=== PATIENT | female | born 1995 | race Caucasian/White ===

== ENCOUNTER 2022-06-01 12:24 | Emergency (ER) | payer BC, SELFPAY ==
[2022-06-01 12:41] VITALS: BP 109/64; PULSE 104; TEMP 36.2; O2SAT 100; BMI 35.3
--- NOTE | 2022-06-01 12:47 | CRLHL7_ITS ---
For Patients: As a result of the Cures Act, medical imaging exams and procedure reports are released immediately into your electronic medical record. You may view this report before your referring provider. If you have questions, please contact your health care provider. INDICATION: Trauma TECHNIQUE: Three-view 3rd digit right hand COMPARISON: None FINDINGS: Bones: Alignment is normal. No fractures or bone lesions. Joint spaces: Unremarkable. Soft tissues: Unremarkable. IMPRESSION: No evidence acute trauma. Dictated by Wil Cota MD @ 06/01/2022 1:28:47 PM Dictated by: Wil Cota MD @ 06/01/2022 13:30:18 (Electronically Signed)
--- NOTE | 2022-06-01 13:37 | ED_ITS ---
HPI - Extremity Injury (Upper) General Chief Complaint: Extremity Pain/Injury, Upper Stated Complaint: Pinched middle finger in garage door Time Seen by Provider: 06/01/22 12:46 History of Present Illness HPI narrative: This 27-year-old female comes in with an injury to her right middle finger. She was pulling down a garage door when she got her finger pinched in the door some out. She has bruising on the palmar aspect of the distal portion of the right middle finger and a small amount of subungual hematoma on the same finger. She does not report any other injury. There is no abrasion or laceration of the skin. Related Data Previous Rx's Medication Instructions Recorded venlafaxine 75 mg capsule,extended 75 mg PO QAM 30 days #30 caps 05/09/22 release 24 hr (Effexor XR) ketorolac 10 mg tablet 10 mg PO Q8H 5 days #15 tabs 06/01/22 Allergies Allergy/AdvReac Type Severity Reaction Status Date / Time amoxicillin Allergy Mild Unknown Verified 05/26/22 10:00 ciprofloxacin Allergy Unknown Verified 05/26/22 10:00 Penicillins Allergy Unknown Rash Verified 05/26/22 10:00 bee venom protein (honey bee) Allergy Verified 05/26/22 10:00 Review of Systems Status of ROS: Reports: 10 or more systems reviewed and unremarkable except as noted in History and below Narrative: Constitutional: No fevers, no weight gain or loss. Eyes: No discharge. No vision changes. HENT: No congestion, no sore throat, no ear pain. Cardiovascular: No chest pain, no palpitations. Respiratory: No shortness of breath, no wheezes, no cough. Gastrointestinal: No abdominal pain, no vomiting, no diarrhea. Genitourinary: No dysuria, no hematuria. Musculoskeletal: Normal range of motion. Injury to the distal portion of the right middle finger. Skin: No rashes, no pruritis. Neurological: No dizziness, weakness, sensory change, speech change. Endo/Heme/Allergies: No bruising or bleeding. No polydipsia. Pysch: no suicidality, no anxiety, no insomnia. All other systems reviewed and are negative. 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 HEENT: Normocephalic, atraumatic. Neck: Normal range of motion. Nontender. Supple. Heart: Intact distal pulses. Lungs: No chest discomfort. No wheezes, rhonchi, or rales. Abdomen: Nontender. Back: Normal range of motion. Extremities: Normal range of motion. Mild swelling with bruising on the distal portion of the right middle finger. There is a small amount of bruising under the nail. No abrasion or laceration of the skin. Skin: Intact. No rash. Warm. No erythema or pallor. Neurologic: No altered sensation. No weakness. Alert and oriented. Psychiatric: No suicidality. No anxiety or depression. No insomnia. Nursing notes and vitals signs are reviewed. Const: Vital Signs, click to edit/add: Vital Signs - 24 hr 06/01/22 12:41 Temperature 97.2 F L Pulse Rate [Pulse Oximeter] 104 H Blood Pressure [Ri ght Upper Arm] 109/64 Pulse Oximetry 100 Oxygen Delivery Me thod Room Air Course Vital Signs Vital signs: Initial Vital Signs Temperature 97.2 F L 06/01/22 12:41 Temperature Source Temporal Artery Scan 06/01/22 12:41 Pulse Rate 104 H 06/01/22 12:41 Blood Pressure 109/64 06/01/22 12:41 Blood Pressure Mean 79 06/01/22 12:41 Blood Pressure Position Sitting 06/01/22 12:41 Pulse Oximetry 100 06/01/22 12:41 Oxygen Delivery Method 06/01/22 12:41 Vital Signs Temperature 97.2 F L 06/01/22 12:41 Pulse Rate 104 H 06/01/22 12:41 Blood Pressure 109/64 06/01/22 12:41 Pulse Oximetry 100 06/01/22 12:41 Oxygen Delivery Method 06/01/22 12:41 Temperature 97.2 F L 06/01/22 12:41 Pulse Rate 104 H 06/01/22 12:41 Blood Pressure 109/64 06/01/22 12:41 Pulse Oximetry 100 06/01/22 12:41 Oxygen Delivery Method 06/01/22 12:41 MDM - Extremity Injury (Upper) MDM Narrative Medical decision making narrative: This patient comes in for evaluation of a crush injury to the distal portion of her right middle finger. X-ray imaging shows no sign of fracture or dislocation. There is no compromise of her skin. The patient was placed in a finger splint and received a prescription for Toradol. She can increase activity as tolerated. Imaging Data xr finger: Radiologist's impression: No evidence acute trauma. Discharge Plan Discharge Clinical Impression: Crush injury to finger Condition: Stable Instructions: Crush Injury (ED) Additional Instructions: Wear splint as needed. Take medication as needed and indicated. Follow up with MD. Prescriptions: New ketorolac 10 mg tablet 10 mg PO Q8H 5 Days Qty: 15 0RF No Action venlafaxine [Effexor XR] 75 mg capsule,extended release 24hr 75 mg PO QAM 30 Days Qty: 30 0RF Rx Instructions: start with effexor 37.5 daily x 2 weeks and then increase to 75 mg daily Follow Up/Referrals: Milagros Sal APRN, MEETING FACILITATOR [Primary Care Provider] - Stand Alone Forms: [facility] Info Instructions
== END 2022-06-01 14:03 | disposition home or self-care (01) ==
PROVIDERS: Emergency Provider Emergency Medicine Emergency Medical Services; PCP Nurse Practitioner Family
DX: S67.192A Crushing injury of right middle finger, initial encounter (principal); W23.0XXA Caught, crushed, jammed, or pinched between moving objects, initial encounter; Y93.9 Activity, unspecified; Y92.015 Private garage of single-family (private) house as the place of occurrence of the external cause
CPT/HCPCS: 73140; 99283

== ENCOUNTER 2022-07-09 18:35 | Emergency (ER) | payer BC, SELFPAY ==
[2022-07-09 18:42] VITALS: BP 116/74; PULSE 98; RESP 18; TEMP 36.2; O2SAT 99; BMI 34.0
--- NOTE | 2022-07-09 18:52 | ED.HA ---
HPI - Headache General Chief Complaint: Headache/Migraine Stated Complaint: HEADACHE,HEAD PAIN Time Seen by Provider: 07/09/22 18:38 History of Present Illness HPI Narrative: Whitney is a 27yo female patient with history of major depressive disorder and generalized anxiety disorder, obstructive sleep apnea, and insomnia who presents to the emergency department with 4 hours of a headache. Patient reports that she took Tylenol at the onset of headache approximately 4 hours prior. When that showed no improvement, she reports taking ibuprofen approximately 2 hours ago. She continues with pain and discomfort so she is presented to the emergency department for evaluation and treatment. She denies history of migraines or frequent headaches. She reports that the pain is worse at the front of her head and feels like a pressure. She denies nasal congestion, sinus pressure or tenderness, ear pain, sore throat, or other URI symptom. She reports some nausea and feels that she 'may get sick at any point'. She has not vomited. Otherwise, she denies abdominal pain, diarrhea, constipation. She has no significant vision changes. Related Data Previous Rx's Medication Instructions Recorded venlafaxine 75 mg capsule,extended 75 mg PO QAM 30 days #30 caps 06/29/22 release 24 hr (Effexor XR) venlafaxine 37.5 mg 37.5 mg PO QDAY 14 days #14 caps 07/04/22 capsule,extended release 24 hr (Effexor XR) sertraline 50 mg tablet (Zoloft) 50 mg PO QDAY 30 days #30 tabs 07/06/22 Allergies Allergy/AdvReac Type Severity Reaction Status Date / Time amoxicillin Allergy Mild Unknown Verified 07/04/22 15:09 ciprofloxacin Allergy Unknown Verified 07/04/22 15:09 Penicillins Allergy Unknown Rash Verified 07/04/22 15:09 bee venom protein (honey bee) Allergy Verified 07/04/22 15:09 Review of Systems Const: Reports: fatigue and malaise; Denies: fever or chills Eyes: Reports: light sensitivity; Denies: change in vision, blurry vision or eye discomfort ENMT: Denies: throat pain, ear pain, vertigo, nasal discharge or nasal congestion Cardio: Denies: chest pain, palpitations, shortness of breath with exertion or shortness of breath when lying down Resp: Denies: shortness of breath or cough GI: Denies: abdominal pain, nausea, vomiting, diarrhea or constipation Integ/Breast: Denies: rash Neuro: Reports: headache; Denies: numbness in extremities, weakness in extremities, lack of coordination, dizziness, vertigo, confusion, behavioral changes, slurred speech or difficulty communicating thoughts Psych: Reports: anxiety Endo: Reports: fatigue PFSH PFSH Surgical History (Updated 05/05/22 @ 09:21 by Calvin Wilson) History of ovarian cystectomy (2017) Status post laparoscopic cholecystectomy Status post primary low transverse section (2020) Family History (Updated 05/05/22 @ 09:23 by Calvin Wilson) Maternal Grandfather Diabetes Mother Epilepsy Pulmonary embolism Social History (Updated 05/05/22 @ 09:24 by Calvin Wilson) 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 , 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[place], 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 Social drinker, 3/week Smoking Status: Never smoker Do you use any of these nicotine containing products: None Second hand tobacco smoke exposure: No How often do you have a drink containing alcohol: never How often do you have six or more drinks on one occasion: Never AUDIT-C Alcohol total score: 0 Non-prescribed substance use: denies use Little interest or pleasure in doing things: more than half the days Feeling down, depressed, or hopeless: nearly every day Exam Const: Vital Signs, click to edit/add: Vital Signs - 24 hr 07/09/22 18:42 Temperature 97.1 F L Pulse Rate [Right Pulse Oximeter] 98 Respiratory Rate 18 Blood Pressure [Ri ght Upper Arm] 116/74 Pulse Oximetry 99 Oxygen Delivery Me thod Room Air Documenting provider has reviewed patient's vital signs: yes Common normals: oriented x3, no limitations and alert General appearance: in distress moderate; not comfortable Orientation/consciousness: Yes awake, Yes oriented to person, Yes oriented to place and Yes oriented to time HENMT: Common normals: normocephalic, head/scalp atraumatic and hearing grossly normal bilaterally Head and scalp: normal to inspection, normocephalic and atraumatic Face and sinus: normal facial exam (limited by masking) Eye: Common normals: PERRL and EOMs intact bilaterally General eye: normal appearance of both eyes Pupil: PERRL Direct Ophthalmoscopy: photophobia Neck & C-Spine: Common normals: full ROM, no lymphadenopathy and supple Resp: Common normals: normal respiratory effort, no retractions, no use of accessory muscles and clear to auscultation bilaterally Effort & inspection: able to speak in complete sentences Auscultation: clear to auscultation bilaterally; no crackles, no rales, no rhonchi and no wheezes Cardio: Common normals: regular rate, regular rhythm, S1 normal heart sound, S2 normal heart sound, no gallops, no clicks and no murmurs Rate: regular rate Rhythm: regular rhythm Heart sounds: S1 normal and S2 normal GI: Common normals: Normal to inspection, nondistended, normoactive bowel sounds present, soft to palpation and non-tender Palpation: soft Extremity: Common normals: normal to inspection, full ROM and no clubbing, cyanosis or edema Neuro: Jeannie Coma Scale: document GCS findings Jeannie coma scale eye opening: Spontaneous (4) Jeannie coma scale verbal response: Orientated (5) Maramec coma scale motor response: Obey commands (6) Jeannie coma scale total score: 15 Common normals: oriented x3, CN's II-XII intact bilaterally, moves all extremities, no focal motor deficits and no sensory deficits noted Sensorium/orientation: awake, alert, oriented to person, oriented to place and oriented to time Speech: speech normal Gait (neuro): normal gait Sensory exam: double simultaneous stimulation for sensation normal Motor exam: no pronator drift and no movement abnormalities noted Psych: Common normals: mental status grossly normal, thought process normal and activity/motor behavior normal Thought process: normal thought process Thought content: normal thought content Attention/concentration: attention grossly intact Memory/cognition: memory grossly intact Insight: insight good Judgement: judgment good Skin: Common normals: no rashes or lesions noted General skin exam: no rashes or lesions noted Course Course Hospital Course: Whitney presents for evaluation of headache present for 4hrs. She has had labs ordered. Treatment ordered. She is in good spirits with nursing staff while undergoing evaluation and treatment. Reevaluation(s) Reevaluation #1: Patient sleeping soundly on reevaluation. Upon awakening, patient reports significant improvement in symptoms. Patient's vital signs have remained stable. The results were discussed, and the patient verbalized understanding. Reasons for follow-up or return were discussed. Time: 20:29 Vital Signs Vital signs: Initial Vital Signs Temperature 97.1 F L 07/09/22 18:42 Temperature Source Temporal Artery Scan 07/09/22 18:42 Pulse Rate 98 07/09/22 18:42 Pulse Rhythm 07/09/22 18:42 Respiratory Rate 18 07/09/22 18:42 Blood Pressure 116/74 07/09/22 18:42 Blood Pressure Mean 88 07/09/22 18:42 Blood Pressure Position Sitting 07/09/22 18:42 Pulse Oximetry 99 07/09/22 18:42 Oxygen Delivery Method 07/09/22 18:42 Vital Signs Temperature 97.1 F L 07/09/22 18:42 Pulse Rate 98 07/09/22 18:42 Respiratory Rate 18 07/09/22 18:42 Blood Pressure 116/74 07/09/22 18:42 Pulse Oximetry 99 07/09/22 18:42 Oxygen Delivery Method 07/09/22 18:42 Temperature 97.1 F L 07/09/22 18:42 Pulse Rate 98 07/09/22 18:42 Respiratory Rate 18 07/09/22 18:42 Blood Pressure 116/74 07/09/22 18:42 Pulse Oximetry 99 07/09/22 18:42 Oxygen Delivery Method 07/09/22 18:42 MDM - Headache MDM Narrative Medical decision making narrative: Life-threatening differential diagnoses include: SAH, meningitis, encephalitis, carbon monoxide poisoning, and intracerebral hemorrhage. Other differential diagnoses include, but are not limited to: migraine, cluster headache, tension headache, [employer] vasculitis, mass lesion, temporal arteritis, acute closed angle glaucoma, occipital or trigeminal neuralgia, and sinusitis. Differential Diagnosis Differential diagnosis: Likely migraine, tension headache and headache Medical Records Attestation: I reviewed the patient's medical records. Lab Data Attestation: I reviewed the patient's lab results. Labs: Lab Results 07/09/22 07/09/22 07/09/22 Range/Units 19:22 19:22 19:22 WBC 8.26 (4.50-11.00) K/uL RBC 3.94 L (4.00-5.20) m/uL Hgb 10.8 L (12.0-16.0) gm/dL Hct 32.6 L (33.0-51.0) % MCV 83 (80-100) fL MCH 27 (26-34) pg MCHC 33 (32-36) gm/dL RDW Coeff of Elena 13.6 (11.5-15.5) % Plt Count 290 (140-440) K/uL Neut % (Auto) 63.8 (42.0-72.0) % Lymph % (Auto) 26.9 (20-44) % Dorado % (Auto) 5.8 (0.0-11.0) % Eos % (Auto) 2.8 (0.0-7.0) % Baso % (Auto) 0.5 (0.0-3.0) % Neut # (Auto) 5.27 (1.7-7.0) K/uL Lymph # (Auto) 2.22 (0.90-2.90) K/uL Dorado # (Auto) 0.50 (0.00-0.90) K/UL Eos # (Auto) 0.23 (0.00-0.50) K/uL Baso # (Auto) 0.04 (0.00-0.30) K/uL Abs Immat Gran (auto) 0.02 (0.00-0.30) K/uL ESR 22 H (2-20) mm/hr Sodium 138 (135-149) mmol/L Potassium 3.5 L (3.6-5.1) mmol/L Chloride 106 (96-114) mmol/L Carbon Dioxide 23 (20-32) mmol/L Creatinine 0.7 (0.5-1.5) mg/dL Estimated Creat Clear 91.90 Estimated GFR 122 ml/min Glucose 100 (60-115) mg/dL Calcium 8.5 (8.4-10.6) mg/dL Discharge Plan Discharge Clinical Impression: Headache Patient Disposition: Home, Self-Care Condition: Improved Instructions: Acute Headache (ED) Additional Instructions: Thank you for choosing [facility] for your care today. You should drink plenty of water. Consider magnesium ([id number]) and riboflavin ([id number]) 400 mg each daily. Avoid headache triggers including dressing changes and caffeine intake, cheeses, significant changes and sugar intake, etc.. There are foods known to cause or trigger migraines and patients, and you may consider keeping a food and headache log to evaluate if you have sensitivities to certain foods. Take your medications as directed. There is a condition called rebound headache phenomenon that occurs with medication overuse. Attempt to avoid overusing [id number] medications. If your headache change in nature, frequency, intensity, or there are new neurologic concerns, you should follow-up with your primary care physician who may consider a brain MRI for further evaluation. I recommend calling primary care for follow-up in the next 1-2 weeks. If new or worsening symptoms develop, or you have any concerns in the meantime, please call your primary care clinic or return to the ER for re-evaluation. Activity Level: No Restrictions and Activity as Tolerated Discharge Diet: Regular Prescriptions: No Action venlafaxine [Effexor XR] 37.5 mg capsule,extended release 24hr 37.5 mg PO QDAY 14 Days Qty: 14 0RF venlafaxine [Effexor XR] 75 mg capsule,extended release 24hr 75 mg PO QAM 30 Days Qty: 30 0RF sertraline [Zoloft] 50 mg tablet 50 mg PO QDAY 30 Days Qty: 30 0RF Follow Up/Referrals: Milagros Sal, SOFTWARE SECURITY CONSULTANT, PRINTED CIRCUIT BOARDS ROUTER [Primary Care Provider] - Stand Alone Forms: [employer] Info Instructions
[2022-07-09] MEDS: diphenhydrAMINE 50 MG/ML inj 25 MG IVP (19:14)
[2022-07-09] MEDS: ACETAMINOPHEN 325 MG TABLET 650 MG PO (19:14)
[2022-07-09] MEDS: KETOROLAC 30 MG/ML inj IVP (19:14)
[2022-07-09] MEDS: 0.9 % SODIUM CHLORIDE 1000 ml 1,000 ML IV (19:15)
[2022-07-09] MEDS: MAGNESIUM SULFATE 2 GM/50 ML PIGGYBACK IVPB (19:15)
[2022-07-09] MEDS: ONDANSETRON 2 MG/ML inj 4 MG IVP (19:15)
[2022-07-09 19:27] LABS: Basophils Absolute Auto 0.04 K/uL (0.00-0.30); Basophils Percent Auto 0.5 % (0.0-3.0); Eosinophils Absolute Auto 0.23 K/uL (0.00-0.50); Eosinophils Percent Auto 2.8 % (0.0-7.0); Hematocrit 32.6 % (33.0-51.0); Hemoglobin* 10.8 gm/dL (12.0-16.0); Immature Granulocytes Abs Auto 0.02 K/uL (0.00-0.30); Lymphocytes Absolute Auto 2.22 K/uL (0.90-2.90); Lymphocytes Percent Auto 26.9 % (20-44); Mean Corpuscular HGB Conc 33 gm/dL (32-36); Mean Corpuscular Hemoglobin 27 pg (26-34); Mean Corpuscular Volume 83 fL (80-100); Monocytes Percent Auto 5.8 % (0.0-11.0); Neutrophils Absolute Auto 5.27 K/uL (1.7-7.0); Neutrophils Percent Auto 63.8 % (42.0-72.0); Platelet Count* 290 K/uL (140-440); RDW Coefficient of Variation % 13.6 % (11.5-15.5); Red Blood Count 3.94 m/uL (4.00-5.20); White Blood Count* 8.26 K/uL (4.50-11.00)
[2022-07-09 19:36] LABS: Slide Review Reflex No
[2022-07-09 19:41] LABS: Chloride* 106 mmol/L (96-114); Potassium* 3.5 mmol/L (3.6-5.1); Sodium* 138 mmol/L (135-149)
[2022-07-09 19:44] LABS: Carbon Dioxide* 23 mmol/L (20-32); Creatinine* 0.7 mg/dL (0.5-1.5); Estimated Glomerular Filt Rate 122 ml/min; Glucose* 100 mg/dL (60-115)
[2022-07-09 19:45] LABS: Calcium* 8.5 mg/dL (8.4-10.6)
[2022-07-09 20:20] LABS: Erythrocyte SedimentationRate* 22 mm/hr (2-20)
[2022-07-09 20:40] VITALS: BP 122/70; PULSE 74; RESP 16; O2SAT 99
[2022-07-10 08:14] LABS: Blood Urea Nitrogen* 5 mg/dL (5-24)
== END 2022-07-09 20:48 | disposition home or self-care (01) ==
PROVIDERS: Emergency Provider Family Medicine; PCP Nurse Practitioner Family
DX: R51.9 Headache, unspecified (principal)
CPT/HCPCS: 36415; 80048; 82375; 85025; 85651; 96365; 96375; 99283; 99284; A9270; J1200; J1885; J2405; J3475; J7030

== ENCOUNTER 2022-07-10 14:46 | Outpatient (CLI) | payer BC, SELFPAY ==
[2022-07-10 22:29] LABS: SARS PCR* Negative SARS-CoV-2 (Negative)
== END 2022-07-10 14:47 | disposition home or self-care (01) ==
LOC: KYNREF 14:46
PROVIDERS: PCP Nurse Practitioner Family; Visit Provider Nurse Practitioner Family
DX: Z11.52 Encounter for screening for COVID-19 (principal); R51.9 Headache, unspecified
CPT/HCPCS: 87635

== ENCOUNTER 2022-07-20 15:30 | Outpatient (CLI) | payer BC, SELFPAY ==
--- NOTE | 2022-07-20 15:30 | CRLHL7_ITS ---
For Patients: As a result of the Century Cures Act, medical imaging exams and procedure reports are released immediately into your electronic medical record. You may view this report before your referring provider. If you have questions, please contact your health care provider. INDICATION: Headaches. TECHNIQUE: Brain MRI without contrast. The following sequences were obtained: Sagittal T1 weighted sequence. DWI and ADC mapping sequences. Axial FLAIR and CARROLL T2 weighted sequences. COMPARISON: None. FINDINGS: Mildly motion degraded exam. No evidence of acute ischemia. No evidence of acute or chronic intracranial blood products. Scattered FLAIR hyperintensities within the supratentorial white matter, nonspecific in greater than typical for age. No mass effect or herniation. No hydrocephalus or extra-axial collections. The pituitary gland, parasellar structures and optic chiasm are normal. Posterior fossa is normal. All the major intracranial vascular structures demonstrate normal flow-related signal. The orbital contents are normal. No calvarial or skull base marrow replacing process. No obstructive sinus disease. No extracranial soft tissue findings. IMPRESSION: 1. No acute infarction or other acute intracranial pathology. 2. Multiple FLAIR hyperintensities scattered within the supratentorial white matter, greater than typical for age. Consider sequela of migrainous headaches given history. Chronic microvascular ischemic change could also have this appearance. Dictated by Sharif Barrett MD @ 07/20/2022 7:16:57 PM (Electronically Signed)
== END 2022-07-20 15:31 | disposition home or self-care (01) ==
PROVIDERS: PCP Nurse Practitioner Family; Visit Provider Nurse Practitioner Family
DX: R51.9 Headache, unspecified (principal)
CPT/HCPCS: 70551

== ENCOUNTER 2022-08-01 16:09 | Outpatient (CLI) | payer BC, SELFPAY ==
[2022-08-01 20:24] LABS: Vitamin D 25 Hydroxy* 24 ng/mL (30-80)
== END 2022-08-01 16:10 | disposition home or self-care (01) ==
PROVIDERS: PCP Nurse Practitioner Family; Visit Provider Nurse Practitioner Family
DX: Z01.419 Encounter for gynecological examination (general) (routine) without abnormal findings (principal); R79.89 Other specified abnormal findings of blood chemistry; E66.9 Obesity, unspecified; Z79.899 Other long term (current) drug therapy
CPT/HCPCS: 82306; 84443

== ENCOUNTER 2023-05-15 10:26 | Outpatient (CLI) | payer OTHER, SELFPAY | END 2023-05-15 10:27 | disposition home or self-care (01) | PROVIDERS: PCP Nurse Practitioner Family; Visit Provider Nurse Practitioner Family | DX: R20.2 Paresthesia of skin (principal); R79.89 Other specified abnormal findings of blood chemistry | CPT/HCPCS: 82607; 82947; 84443 ==

== ENCOUNTER 2023-05-31 16:50 | Outpatient (CLI) | payer OTHER, SELFPAY ==
[2023-05-31 23:41] LABS: GC DNA Amplified* NOT DETECTED (No Detected)
[2023-06-01] LABS: Chlamydia DNA Amplified* DETECTED (No Detected)
== END 2023-05-31 16:51 | disposition home or self-care (01) ==
LOC: NFLDUCREF 17:00
PROVIDERS: PCP Nurse Practitioner Family; Visit Provider Nurse Practitioner Family
DX: N89.8 Other specified noninflammatory disorders of vagina (principal); R30.0 Dysuria
CPT/HCPCS: 87086; 87491; 87591

== ENCOUNTER 2023-09-11 08:46 | Outpatient (CLI) | payer OTHER, SELFPAY | END 2023-09-11 08:47 | disposition home or self-care (01) | PROVIDERS: PCP Nurse Practitioner Family; Visit Provider Nurse Practitioner Family | DX: R53.83 Other fatigue (principal); R79.89 Other specified abnormal findings of blood chemistry | CPT/HCPCS: 82306; 82728; 83540; 83550; 85025 ==

== ENCOUNTER 2023-11-27 16:04 | Outpatient (CLI) | payer OTHER, SELFPAY | END 2023-11-27 16:05 | disposition home or self-care (01) | PROVIDERS: PCP Nurse Practitioner Family; Visit Provider Nurse Practitioner Family | DX: R79.89 Other specified abnormal findings of blood chemistry (principal); D50.9 Iron deficiency anemia, unspecified; Z51.81 Encounter for therapeutic drug level monitoring | CPT/HCPCS: 80306; 82306; 85025 ==

== ENCOUNTER 2024-01-13 13:47 | Emergency (ER) | payer OTHER, SELFPAY ==
[2024-01-13 13:52] VITALS: BP 108/77; PULSE 115; RESP 22; TEMP 36.4; O2SAT 100; BMI 31.2
--- NOTE | 2024-01-13 13:56 | ED_ITS ---
HPI - General Adult General Chief complaint: Fall/Minor Trauma Stated complaint: Fell, hit head, radiating pain to jaw Time Seen by Provider: 01/13/24 13:56 History of Present Illness HPI narrative: Patient fell in shower scraping right shoulder and hitting head on left side. Goose egg noted above left ear . No LOC. Slight nausea and headache. Needs work note at discharge 28-year-old young woman presenting to the emergency department after striking her head in her shower about a couple hours ago. There was no loss of consciousness but she sat there for bit seeing stars. She is starting to feel more queasy and tingly now. She did take ibuprofen. No neck or back pain but feels pain radiating from the left upper head area down below lower jaw [place] neck. Dentition feels normal/intact noting her affected bite. No back pain. No peripheral symptoms. No visual changes. She notes that she scraped her right upper back and is starting to have more pain with movement of her right arm. Related Data Previous Rx's Medication Instructions Recorded pediatric multivitamin no.140-iron 1 tab PO DAILY #90 tabs 09/14/23 fumarate 18 mg iron chewable tablet (Children's Chewable Vitamin Complete) trazodone 50 mg tablet 50 mg PO QHS PRN insomnia #90 tabs 10/11/23 fluticasone propionate 50 1 spray intranasal QDAY #16 grams 11/27/23 mcg/actuation nasal spray,suspension (Flonase Allergy Relief) cholecalciferol (vitamin D3) 50 50 mcg PO QDAY #90 caps 11/30/23 mcg (2,000 unit) capsule dextroamphetamine-amphetamine ER 30 mg PO QAM #30 caps 12/28/23 30 mg 24hr capsule,extend release (Adderall XR) mupirocin 2 % topical ointment 1 applic topical TID #15 grams 01/02/24 ibuprofen 600 mg tablet 600 mg PO Q6-8H PRN #20 tabs 01/13/24 Allergies Allergy/AdvReac Type Severity Reaction Status Date / Time amoxicillin Allergy Mild Unknown Verified 01/02/24 15:00 ciprofloxacin Allergy Unknown Verified 01/02/24 15:00 Penicillins Allergy Unknown Rash Verified 01/02/24 15:00 bee venom protein (honey bee) Allergy Verified 01/02/24 15:00 Review of Systems Status of ROS: Reports: 6 or more systems reviewed and unremarkable except as noted in History and below [facility] Medical History Iron deficiency anemia (2016) ?D50.9 - Iron deficiency anemia, unspecified (ICD-10) Insomnia ?G47.00 - Insomnia, unspecified (ICD-10) Marijuana use ?F12.90 - Cannabis use, unspecified, uncomplicated (ICD-10) ADHD ?F90.9 - Attention-deficit hyperactivity disorder, unspecified type (ICD-10) History of alcohol abuse ?F10.11 - Alcohol abuse, in remission (ICD-10) Labor abnormality ?O62.9 - Abnormality of forces of labor, unspecified (ICD-10) Low vitamin D level ?R79.89 - Other specified abnormal findings of blood chemistry (ICD-10) Post-traumatic stress ?F43.10 - Post-traumatic stress disorder, unspecified (ICD-10) Passive suicidal ideations ?R45.851 - Suicidal ideations (ICD-10) Medication management ?Z79.899 - Other intermediate manager (current) drug therapy (ICD-10) Persistent headaches ?R51.9 - Headache, unspecified (ICD-10) Nausea ?R11.0 - Nausea (ICD-10) Headache ?R51.9 - Headache, unspecified (ICD-10) Nexplanon insertion ?Z30.017 - Encounter for initial prescription of implantable subdermal contraceptive (ICD-10) Nexplanon in place ?Z97.5 - Presence of (intrauterine) contraceptive device (ICD-10) Viral infection ?B34.9 - Viral infection, unspecified (ICD-10) Obstructive sleep apnea syndrome ?G47.33 - Obstructive sleep apnea (adult) (pediatric) (ICD-10) Obesity with body mass index (BMI) of 30.0 to 39.9 ?E66.9 - Obesity, unspecified (ICD-10) Excessive daytime sleepiness ?G47.19 - Other hypersomnia (ICD-10) Elevated liver function tests ?R79.89 - Other specified abnormal findings of blood chemistry (ICD-10) Difficulty sleeping ?G47.9 - Sleep disorder, unspecified (ICD-10) Anxiety with depression ?F41.8 - Other specified anxiety disorders (ICD-10) Anemia due to acute blood loss ?D62 - Acute posthemorrhagic anemia (ICD-10) Acute cholecystitis ?K81.0 - Acute cholecystitis (ICD-10) Surgical History Status post primary low transverse section (2020) ?Z98.891 - History of uterine scar from previous surgery (ICD-10) Status post laparoscopic cholecystectomy ?Z90.49 - Acquired absence of other specified parts of digestive tract (ICD- 10) History of ovarian cystectomy (2017) ?Z98.890 - Other specified postprocedural states (ICD-10) ?Z87.42 - Personal history of other diseases of the female genital tract (ICD-10) Family History Maternal Grandfather Diabetes Mother Epilepsy Pulmonary embolism Social History 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 , 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, 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 Social drinker, 3/week Smoking Status: Never smoker Do you use any of these nicotine containing products: None Second hand tobacco smoke exposure: No How often do you have a drink containing alcohol: never How often do you have six or more drinks on one occasion: Never AUDIT-C Alcohol total score: 0 Non-prescribed substance use: denies use Little interest or pleasure in doing things: several days Feeling down, depressed, or hopeless: several days Exam Narrative: Exam Narrative: Pleasant. Her head is wet from recent shower. She has have an egg-sized swelling above the left ear. Quite tender here. No break in the skin but faintly erythematous. Opens close the jaw without difficulty and without disc rete TMJ tenderness. Ear canals clear fluid. Neck is supple nontender back nontender until the right scapular area which is with to larger oval in ear abrasions parallel. Some subtle disruption of the skin at the lower most medial lower aspec. Is raising arms though over her head without difficulty. Cranial nerves 2-12 intact. Point avoid is normal. Articulating herself clearly, fluidly. Const: Vital Signs, click to edit/add: Vital Signs - 24 hr 01/13/24 13:52 Temperature 97.5 F L Pulse Rate [Pulse Oximeter] 115 H Respiratory Rate 22 Blood Pressure [Ri ght Upper Arm] 108/77 Pulse Oximetry 100 Oxygen Delivery Me thod Room Air Documenting provider has reviewed patient's vital signs: yes Course Vital Signs Vital signs: Initial Vital Signs Temperature 97.5 F L 01/13/24 13:52 Temperature Source Temporal Artery Scan 01/13/24 13:52 Pulse Rate 115 H 01/13/24 13:52 Pulse Rhythm Regular 01/13/24 13:52 Respiratory Rate 22 01/13/24 13:52 Blood Pressure 108/77 01/13/24 13:52 Blood Pressure Mean 87 01/13/24 13:52 Blood Pressure Position Sitting 01/13/24 13:52 Pulse Oximetry 100 01/13/24 13:52 Oxygen Delivery Method Room Air 01/13/24 13:52 Vital Signs Temperature 97.5 F L 01/13/24 13:52 Pulse Rate 115 H 01/13/24 13:52 Respiratory Rate 22 01/13/24 13:52 Blood Pressure 108/77 01/13/24 13:52 Pulse Oximetry 100 01/13/24 13:52 Oxygen Delivery Method Room Air 01/13/24 13:52 Temperature 97.5 F L 01/13/24 13:52 Pulse Rate 115 H 01/13/24 13:52 Respiratory Rate 22 01/13/24 13:52 Blood Pressure 108/77 01/13/24 13:52 Pulse Oximetry 100 01/13/24 13:52 Oxygen Delivery Method Room Air 01/13/24 13:52 Medications Administered Medications: Discontinued Medications Generic Name Dose Route Start Last Admin Trade Name Freq PRN Reason Stop Dose Admin Acetaminophen 1,000 mg 01/13/24 14:33 01/13/24 14:54 Acetaminophen 500 Mg Tablet PO 01/13/24 14:34 1,000 mg ONCE ONE Administration Ondansetron HCl 4 mg 01/13/24 14:14 01/13/24 14:53 Ondansetron Odt 4 Mg Tab PO 01/13/24 14:15 4 mg ONCE ONE Administration Medical Decision Making MDM Narrative Medical decision making narrative: I suspect more of a superficial injury here. Clearly though with a good deal of pain and moderate swelling. Certainly is possible there is a skull fracture here. Will do head CT. Also provide ice pack. Already has taken ibuprofen with minimal effect. I think time will tell whether not has concussive symptoms. I do not appreciate concussion here today. I do not think there is a scapular fracture given how is able to raise arms rotate the right shoulder. Clearly is quite concerned about potential head injury. I think head CT would be prudent. Given acetaminophen has had been driving and would like something for pain. Pain was worse. Eyeglass arm might be pressing into the sensitive area as well. Ice pack in particular I think has been helpful. Head CT reviewed by me looks to be absent any acute abnormality. Other than some soft tissue swelling on the left extracranial side consistent with physical exam. She is anxious to leave. Discussed pain management. See patient discharge plan for further discussion Medical Records Medical records reviewed: Yes I reviewed the patient's medical records Discharge Plan Discharge Clinical Impression: Closed head injury, Contusion, Abrasion Patient Disposition: Home, Self-Care Condition: Stable Additional Instructions: Stay well-hydrated. Your brain 1 to be hydrated and needs rest; get regular and quality sleep. Return for uncontrolled pain, repeated vomiting, discoordination, focal weakness. Signs or symptoms of a concussion might be nausea or headache upon exertion which can also be an indication to back off that level of activity and reassess in a week.? Concussion can also be represented by smoldering nausea or s moldering headache, difficulty with concentration, mood lability, general somnolence, sense of persistent fog or dizziness/lightheadedness.? If these symptoms are becoming apparent and continuing beyond 7-10 days, be re-evaluated for further recommendations. See handout for stretches you might do couple of times daily for your upper back/neck pain Can take up to 1000 mg of acetaminophen per dose. I have also sent in 600 mg tablets of ibuprofen for you which could be combined with acetaminophen if you want Cold packs to the sore areas 2-3 times daily over the next few days. Prescriptions: New ibuprofen 600 mg tablet 600 mg PO Q6-8H PRNQty: 20 0RF No Action fluticasone propionate [Flonase Allergy Relief] 50 mcg/actuation spray,suspension 1 spray intranasal QDAY Qty: 16 6RF Rx Instructions: administer into each nostril trazodone 50 mg tablet 50 mg PO QHS PRN (Reason: insomnia) Qty: 90 3RF mupirocin 2 % ointment 1 applic topical TID Qty: 15 0RF Child Chewable Vitamn Complete 18 mg iron tablet,chewable 1 tab PO DAILY Qty: 90 3RF cholecalciferol (vitamin D3) 50 mcg (2,000 unit) capsule 50 mcg PO QDAY Qty: 90 3RF Rx Instructions: to start after she finishes 50,000 units weekly dextroamphetamine-amphetamine [Adderall XR] 30 mg capsule,extended release 24hr 30 mg PO QAM Qty: 30 0RF Follow Up/Referrals: Milagros Sal, [employer], [employer] [Primary Care Provider] - Stand Alone Forms: [employer] Info Instructions
--- NOTE | 2024-01-13 14:13 | CT_ITS ---
Patient: SHAKILA KANG Facility:?[facility] Patient ID:?[id number] Site Patient ID:?[id number]. Site :?[id number] Study:?CT-Head WITHOUT-01/13/2024 2:36:20 PM Ordering Physician:MARTHA Final Report: INDICATION: Headache. Trauma. TECHNIQUE: Non-contrast CT of the head is submitted. No comparisons. FINDINGS: The ventricles, sulci and gyri are of normal size, shape and contour. Midline structures are centrally located. No convincing evidence of intra- or extra- axial fluid collections. IMPRESSION: 1. No radiographic evidence of acute intracranial abnormalities. Please note that all CT scans at this facility use dose modulation, iterative reconstruction, and/or weight-based dosing when appropriate to reduce radiation dose to as low as reasonably achievable. Dictated by Andrea Vega MD @ 01/13/2024 3:10:19 PM Signed by:?Andrea Vega MD @01/13/2024 3:10:19 PM (Electronic Signature)
[2024-01-13] MEDS: ONDANSETRON ODT 4 MG TAB PO (14:53)
[2024-01-13] MEDS: ACETAMINOPHEN 500 MG TABLET 1000 MG PO (14:54)
== END 2024-01-13 15:35 | disposition home or self-care (01) ==
PROVIDERS: Emergency Provider Family Medicine; PCP Nurse Practitioner Family
DX: S09.90XA Unspecified injury of head, initial encounter (principal); S40.211A Abrasion of right shoulder, initial encounter; W18.2XXA Fall in (into) shower or empty bathtub, initial encounter
CPT/HCPCS: 70450; 99283; 99284; A9270

== ENCOUNTER 2024-04-26 00:02 | Emergency (ER) | payer BC, SELFPAY ==
[2024-04-26 00:04] VITALS: BP 112/75; PULSE 84; RESP 16; TEMP 36.4; O2SAT 99; BMI 29.3
--- NOTE | 2024-04-26 00:19 | ED.ABDPAIN ---
HPI - Abdominal Pain General Time Seen by Provider: 00:19 Date Seen: 04/26/24 Chief Complaint: Abdominal Pain Stated Complaint: Abdominal Pain Time Seen by Provider: 04/26/24 00:18 Source: patient, RN notes reviewed and old records reviewed Mode of arrival: ambulatory Limitations: no limitations History of Present Illness HPI narrative: This 28-year-old female is tearful and complaining of left upper quadrant abdominal pain. She states symptoms actually started yesterday, has had nausea and vomiting with this. She states she can not keep even water down, cannot keep any fluids down. She states she does not Darrell today. No fevers or chills. She has had no diarrhea. Her last bowel movement was maybe a day or so ago. She has a Nexplanon in place in her right upper arm. No urinary symptoms. She states there is significant pain with this and abdominal cramping. She has had a prior cholecystectomy and she has had a before. Her chart also lists a prior ovarian cystectomy. MD elicited complaint: abdominal pain Related Data Hx Last Menstrual Period: Has Nexplanon Previous Rx's ?Medication ?Instructions ?Recorded pediatric multivitamin no.140-iron 1 tab PO DAILY #90 tabs 09/14/23 fumarate 18 mg iron chewable tablet (Children's Chewable Vitamin Complete) trazodone 50 mg tablet 50 mg PO QHS PRN insomnia #90 tabs 10/11/23 fluticasone propionate 50 1 spray intranasal QDAY #16 grams 11/27/23 mcg/actuation nasal spray,suspension (Flonase Allergy Relief) cholecalciferol (vitamin D3) 50 50 mcg PO QDAY #90 caps 11/30/23 mcg (2,000 unit) capsule mupirocin 2 % topical ointment 1 applic topical TID #15 grams 01/02/24 ibuprofen 600 mg tablet 600 mg PO Q6-8H PRN #20 tabs 01/13/24 dextroamphetamine-amphetamine ER 30 mg PO QAM #30 caps 03/27/24 30 mg 24hr capsule,extend release (Adderall XR) Allergies Allergy/AdvReac Type Severity Reaction Status Date / Time amoxicillin Allergy Mild Unknown Verified 01/02/24 15:00 ciprofloxacin Allergy Unknown Verified 01/02/24 15:00 Penicillins Allergy Unknown Rash Verified 01/02/24 15:00 bee venom protein (honey bee) Allergy Verified 01/02/24 15:00 Review of Systems Status of ROS Reports: 6 or more systems reviewed and unremarkable except as noted in History and below [facility] Medical History Iron deficiency anemia (2016) ?D50.9 - Iron deficiency anemia, unspecified (ICD-10) Insomnia ?G47.00 - Insomnia, unspecified (ICD-10) Marijuana use ?F12.90 - Cannabis use, unspecified, uncomplicated (ICD-10) ADHD ?F90.9 - Attention-deficit hyperactivity disorder, unspecified type (ICD-10) History of alcohol abuse ?F10.11 - Alcohol abuse, in remission (ICD-10) Labor abnormality ?O62.9 - Abnormality of forces of labor, unspecified (ICD-10) Low vitamin D level ?R79.89 - Other specified abnormal findings of blood chemistry (ICD-10) Post-traumatic stress ?F43.10 - Post-traumatic stress disorder, unspecified (ICD-10) Passive suicidal ideations ?R45.851 - Suicidal ideations (ICD-10) Medication management ?Z79.899 - Other manager long term care (current) drug therapy (ICD-10) Persistent headaches ?R51.9 - Headache, unspecified (ICD-10) Nausea ?R11.0 - Nausea (ICD-10) Headache ?R51.9 - Headache, unspecified (ICD-10) Nexplanon insertion ?Z30.017 - Encounter for initial prescription of implantable subdermal contraceptive (ICD-10) Nexplanon in place ?Z97.5 - Presence of (intrauterine) contraceptive device (ICD-10) Viral infection ?B34.9 - Viral infection, unspecified (ICD-10) Obstructive sleep apnea syndrome ?G47.33 - Obstructive sleep apnea (adult) (pediatric) (ICD-10) Obesity with body mass index (BMI) of 30.0 to 39.9 ?E66.9 - Obesity, unspecified (ICD-10) Excessive daytime sleepiness ?G47.19 - Other hypersomnia (ICD-10) Elevated liver function tests ?R79.89 - Other specified abnormal findings of blood chemistry (ICD-10) Difficulty sleeping ?G47.9 - Sleep disorder, unspecified (ICD-10) Anxiety with depression ?F41.8 - Other specified anxiety disorders (ICD-10) Anemia due to acute blood loss ?D62 - Acute posthemorrhagic anemia (ICD-10) Acute cholecystitis ?K81.0 - Acute cholecystitis (ICD-10) Surgical History Status post primary low transverse section (2020) ?Z98.891 - History of uterine scar from previous surgery (ICD-10) Status post laparoscopic cholecystectomy ?Z90.49 - Acquired absence of other specified parts of digestive tract (ICD-10) History of ovarian cystectomy (2017) ?Z98.890 - Other specified postprocedural states (ICD-10) ?Z87.42 - Personal history of other diseases of the female genital tract (ICD-10) Family History Maternal Grandfather Diabetes Mother Epilepsy Pulmonary embolism Social History 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 , 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, 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 Social drinker, 3/week Smoking Status: Never smoker Do you use any of these nicotine containing products: None Second hand tobacco smoke exposure: No How often do you have a drink containing alcohol: never How often do you have six or more drinks on one occasion: Never AUDIT-C Alcohol total score: 0 Non-prescribed substance use: denies use Little interest or pleasure in doing things: several days Feeling down, depressed, or hopeless: several days Exam Const: Vital Signs, click to edit/add: Vital Signs - 24 hr 04/26/24 00:04 Temperature 97.5 F L Pulse Rate [Right Pulse Oximeter] 84 Respiratory Rate 16 Blood Pressure [Ri ght Upper Arm] 112/75 Pulse Oximetry 99 Oxygen Delivery Me thod Room Air Patient is alert, interactive, tearful and it distress. She is able to speak in complete sentences. Keeps her eyes closed, does cry some. Symmetrical facial function, lips look normal, oral mucosa looks moist, not dry. Lungs are clear, good air entry, no wheezing crackles. CV regular rate and rhythm, no murmur, normal S1-S2, no S3-S4. Abdomen is soft, nondistended, no organomegaly, no masses noted, bowel sounds are present but on the more sluggish side. She complains of left upper quadrant pain but no rebound or guarding, pain does not generalize elsewhere. Documenting provider has reviewed patient's vital signs: yes Course Course ED Course: Reviewed with patient that I will initiate IV fluids, Zofran management and treat her symptoms. She wanted to know she could have something for pain. We will order Toradol for her. Will start with a flat and upright and full complement of basic labs. This presumably could be a gastroenteritis with the abdominal cramping and nausea vomiting. She could have an ileus so or even bowel obstruction given that she has had prior abdominal surgeries. Will check lipase just to ensure no pancreatic change. Will start with the flat and upright abdominal imaging but consider moving to CT there is any indication labs or change in her clinical status here. Reevaluation(s) Time of Reevaluation #1: 01:30 Reevaluation #1: Patient was sleeping when I went back into room, did awaken. She states she is feeling a little bit better. Did review the reassuring workup. I do think this likely represents a gastroenteritis at this point. Will send her with Zofran from [employer] 10 tablets. Did review the mild hypokalemia, strategies to improve this. I do not think that replacing her with oral potassium will work given her presentation of nausea and vomiting. Looking back in her records, has been 3.5. If we can keep her nausea controlled with Zofran, this potassium is likely to correct for her naturally. She is otherwise healthy young female. Will provide her handout with potassium content of foods. As she feels better, can eat some higher potassium concentrated foods to help replenish her potassium. Vital Signs Vital signs: Initial Vital Signs Temperature 97.5 F L 04/26/24 00:04 Temperature Source Temporal Artery Scan 04/26/24 00:04 Pulse Rate 84 04/26/24 00:04 Pulse Rhythm Regular 04/26/24 00:04 Respiratory Rate 16 04/26/24 00:04 Blood Pressure 112/75 04/26/24 00:04 Blood Pressure Mean 87 04/26/24 00:04 Blood Pressure Position Sitting 04/26/24 00:04 Pulse Oximetry 99 04/26/24 00:04 Oxygen Delivery Method Room Air 04/26/24 00:04 Vital Signs Temperature 97.5 F L 04/26/24 00:04 Pulse Rate 84 04/26/24 00:04 Respiratory Rate 16 04/26/24 00:04 Blood Pressure 112/75 04/26/24 00:04 Pulse Oximetry 99 04/26/24 00:04 Oxygen Delivery Method Room Air 04/26/24 00:04 Temperature 97.5 F L 04/26/24 00:04 Pulse Rate 84 04/26/24 00:04 Respiratory Rate 16 04/26/24 00:04 Blood Pressure 112/75 04/26/24 00:04 Pulse Oximetry 99 04/26/24 00:04 Oxygen Delivery Method Room Air 04/26/24 00:04 Medications Administered Medications: Discontinued Medications Generic Name Dose Route Start Last Admin Trade Name Freq PRN Reason Stop Dose Admin Sodium Chloride 1,000 mls @ 1,000 mls/hr 04/26/24 00:24 04/26/24 00:38 0.9 % Sodium Chloride 1000 Ml IV 04/26/24 01:23 1,000 mls/hr .Q1H OBINNA Administration Ketorolac Tromethamine 15 mg 04/26/24 00:22 04/26/24 00:39 Ketorolac 15 Mg/Ml Inj IVP 04/26/24 00:23 15 mg ONCE ONE Administration Ondansetron HCl 4 mg 04/26/24 00:22 04/26/24 00:39 Ondansetron 2 Mg/Ml Inj IVP 04/26/24 00:23 4 mg ONCE ONE Administration MDM - Abdominal Pain Lab Data Attestation: I reviewed the patient's lab results. Labs: Lab Results 04/26/24 04/26/24 Range/Units 00:23 00:35 WBC 9.69 (4.50-11.00) K/uL RBC 4.18 (4.00-5.20) m/uL Hgb 12.0 (12.0-16.0) gm/dL Hct 35.6 (33.0-51.0) % MCV 85 (80-100) fL MCH 29 (26-34) pg MCHC 34 (32-36) gm/dL RDW Coeff of Elena 12.7 (11.5-15.5) % Plt Count 335 (140-440) K/uL Neut % (Auto) 71.6 (42.0-72.0) % Lymph % (Auto) 19.6 L (20-44) % Rich % (Auto) 6.8 (0.0-11.0) % Eos % (Auto) 1.4 (0.0-7.0) % Baso % (Auto) 0.2 (0.0-3.0) % Neut # (Auto) 6.93 (1.7-7.0) K/uL Lymph # (Auto) 1.90 (0.90-2.90) K/uL Rich # (Auto) 0.70 (0.00-0.90) K/UL Eos # (Auto) 0.14 (0.00-0.50) K/uL Baso # (Auto) 0.02 (0.00-0.30) K/uL Abs Immat Gran (auto) 0.04 (0.00-0.30) K/uL Imm/Tot Granulo (auto) 0.4 % Sodium 137 (135-149) mmol/L Potassium 3.3 L (3.6-5.1) mmol/L Chloride 101 (96-114) mmol/L Carbon Dioxide 29 (20-32) mmol/L Anion Gap 7 (7-15) mEq/L BUN 9 (5-24) mg/dL Creatinine 0.9 (0.5-1.5) mg/dL Estimated Creat Clear 70.85 Estimated GFR 90 ml/min Glucose 104 (60-115) mg/dL Lactate 1.1 (0.5-1.9) mmol/L Calcium 9.2 (8.4-10.6) mg/dL Total Bilirubin 0.6 (0.1-1.5) mg/dL AST 23 (12-35) U/L ALT 14 (4-35) U/L Alkaline Phosphatase 67 (40-150) U/L Total Protein 7.4 (6.0-8.3) g/dL Albumin 4.4 (3.3-5.0) g/dL Lipase 153 (23-300) U/L HCG, Qual Negative (Negative) Imaging Data Abdominal x-ray: Attestation: I have reviewed the pertinent imaging results. My impression: Abdominal images were reviewed in on my preliminary review, do not appreciate any acute bowel pathology. Radiologist's impression: Patient: SHAKILA JUANCHOMIKEMITCH Facility:[facility] Patient ID:?[id number] Site Patient ID:?[id number]. Site :?[id number] Study:?XRay-Abdomen flat and upright-04/26/2024 1:13:24 AM Ordering Physician:Serafin Domínguez Final Report: INDICATION: Nausea, vomiting, left upper quadrant pain, left upper quadrant abdominal pain TECHNIQUE: Abdomen/Pelvis radiograph 2 views COMPARISON: None FINDINGS: Bowel: The bowel gas pattern is normal without evidence of bowel obstruction. Soft tissue: No evidence of pneumoperitoneum present. No suspicious calcifications noted. Surgical clips are noted in the right upper quadrant from prior cholecystectomy. Bone: Unremarkable for age. IMPRESSION: 1. Unremarkable appearance of the visualized abdomen. Dictated by: Zay Cintron MD @ 04/26/2024 01:16:34 (Electronic Signature) Discharge Plan Discharge Clinical Impression: Gastroenteritis Patient Disposition: Home, Self-Care Condition: Stable Instructions: Potassium Content of Foods List (ED), Gastroenteritis (ED) Additional Instructions: Recommend frequent small sips of liquids while you are awake to stay hydrated. May need to use the Zofran to help with further nausea. As you feel better, can increase your diet back to normal. Your potassium was just slightly low and is very likely caused by the vomiting. Your body will correct this naturally. Did provide a handout on foods that are high in potassium, consider eating some of these when you are able. If you are not improving over the next couple days, are worsening at any point, develops fever or increasing abdominal pain, do recommend re-evaluation. Activity Level: Activity as Tolerated Prescriptions: No Action fluticasone propionate [Flonase Allergy Relief] 50 mcg/actuation spray,suspension 1 spray intranasal QDAY Qty: 16 6RF Rx Instructions: administer into each nostril trazodone 50 mg tablet 50 mg PO QHS PRN (Reason: insomnia) Qty: 90 3RF mupirocin 2 % ointment 1 applic topical TID Qty: 15 0RF ibuprofen 600 mg tablet 600 mg PO Q6-8H PRNQty: 20 0RF Child Chewable Vitamn Complete 18 mg iron tablet,chewable 1 tab PO DAILY Qty: 90 3RF cholecalciferol (vitamin D3) 50 mcg (2,000 unit) capsule 50 mcg PO QDAY Qty: 90 3RF Rx Instructions: to start after she finishes 50,000 units weekly dextroamphetamine-amphetamine [Adderall XR] 30 mg capsule,extended release 24hr 30 mg PO QAM Qty: 30 0RF Follow Up/Referrals: Milagros Sal APRN, ONLINE CONTENT COORDINATOR [Primary Care Provider] - Stand Alone Forms: [employer] Info Instructions
[2024-04-26 00:22] VITALS: O2SAT 98
--- NOTE | 2024-04-26 00:23 | CRLHL7_ITS ---
For Patients: As a result of the Century Cures Act, medical imaging exams and procedure reports are released immediately into your electronic medical record. You may view this report before your referring provider. If you have questions, please contact your health care provider. INDICATION: Nausea, vomiting, left upper quadrant pain, left upper quadrant abdominal pain TECHNIQUE: Abdomen/Pelvis radiograph 2 views COMPARISON: None FINDINGS: Bowel: The bowel gas pattern is normal without evidence of bowel obstruction. Soft tissue: No evidence of pneumoperitoneum present. No suspicious calcifications noted. Surgical clips are noted in the right upper quadrant from prior cholecystectomy. Bone: Unremarkable for age. IMPRESSION: 1. Unremarkable appearance of the visualized abdomen. Dictated by: Zay Cintron MD @ 04/26/2024 01:16:34 (Electronically Signed)
[2024-04-26] MEDS: 0.9 % SODIUM CHLORIDE 1000 ml 1,000 ML IV (00:38)
[2024-04-26] MEDS: ONDANSETRON 2 MG/ML inj 4 MG IVP (00:39)
[2024-04-26] MEDS: KETOROLAC 15 MG/ML inj IVP (00:39)
[2024-04-26 00:52] LABS: Lactate* 1.1 mmol/L (0.5-1.9)
[2024-04-26 00:53] LABS: Basophils Absolute Auto 0.02 K/uL (0.00-0.30); Basophils Percent Auto 0.2 % (0.0-3.0); Eosinophils Absolute Auto 0.14 K/uL (0.00-0.50); Eosinophils Percent Auto 1.4 % (0.0-7.0); Hematocrit 35.6 % (33.0-51.0); Immature Granulocytes Abs Auto 0.04 K/uL (0.00-0.30); Immature Granulocytes Pct Auto 0.4 %; Lymphocytes Percent Auto 19.6 % (20-44); Mean Corpuscular HGB Conc 34 gm/dL (32-36); Mean Corpuscular Hemoglobin 29 pg (26-34); Mean Corpuscular Volume 85 fL (80-100); Monocytes Percent Auto 6.8 % (0.0-11.0); Neutrophils Absolute Auto 6.93 K/uL (1.7-7.0); Neutrophils Percent Auto 71.6 % (42.0-72.0); Platelet Count* 335 K/uL (140-440); RDW Coefficient of Variation % 12.7 % (11.5-15.5); Red Blood Count 4.18 m/uL (4.00-5.20); White Blood Count* 9.69 K/uL (4.50-11.00)
[2024-04-26 01:01] LABS: Slide Review Reflex No
[2024-04-26 01:08] VITALS: BP 114/60; PULSE 80; RESP 16; O2SAT 99
[2024-04-26 01:18] LABS: Albumin* 4.4 g/dL (3.3-5.0); Chloride* 101 mmol/L (96-114)
[2024-04-26 01:19] LABS: Potassium* 3.3 mmol/L (3.6-5.1); Sodium* 137 mmol/L (135-149)
[2024-04-26 01:21] LABS: Anion Gap 7 mEq/L (7-15); Aspartate Amino Transferase* 23 U/L (12-35); Bilirubin Total* 0.6 mg/dL (0.1-1.5); Carbon Dioxide* 29 mmol/L (20-32); Creatinine* 0.9 mg/dL (0.5-1.5); Est. Creatinine Clearance* 70.85; Estimated Glomerular Filt Rate 90 ml/min; Total Protein* 7.4 g/dL (6.0-8.3)
[2024-04-26 01:22] LABS: Alanine Aminotransferase* 14 U/L (4-35); Alkaline Phosphatase* 67 U/L (40-150); Blood Urea Nitrogen* 9 mg/dL (5-24); Calcium* 9.2 mg/dL (8.4-10.6); Glucose* 104 mg/dL (60-115); Lipase* 153 U/L (23-300)
[2024-04-26 01:25] LABS: HCG Qualitative Serum* Negative (Negative)
== END 2024-04-26 01:51 | disposition home or self-care (01) ==
PROVIDERS: Emergency Provider Family Medicine; PCP Nurse Practitioner Family
DX: K52.9 Noninfective gastroenteritis and colitis, unspecified (principal)
CPT/HCPCS: 36415; 74019; 80053; 81001; 83605; 83690; 84703; 85025; 86140; 94761; 96374; 96375; 99284; J1885; J2405; J7030

== ENCOUNTER 2024-04-26 17:48 | Emergency (ER) | payer OTHER, SELFPAY ==
[2024-04-26 17:58] VITALS: BP 124/80; PULSE 77; RESP 18; TEMP 36; O2SAT 100; BMI 29.3
--- NOTE | 2024-04-26 18:25 | CRLHL7_ITS ---
For Patients: As a result of the Century Cures Act, medical imaging exams and procedure reports are released immediately into your electronic medical record. You may view this report before your referring provider. If you have questions, please contact your health care provider. INDICATION: Abdominal pain and vomiting. TECHNIQUE: CT abdomen and pelvis acquired with IV contrast. 76 mL IV Isovue 370. COMPARISON: Same-day abdominal radiographs. FINDINGS: Lower chest: Unremarkable. Liver: There is a subcentimeter hypoattenuating lesion in the right lobe of the liver too small to accurately characterize but likely benign cyst. Gallbladder and bile ducts: The gallbladder is surgically absent. Spleen: Unremarkable. Pancreas: Unremarkable. Adrenal glands: Unremarkable. Kidneys: No kidney or ureteral stones and no hydronephrosis. There is a 1.4 cm benign cyst in the upper pole the right kidney. GI tract: No bowel obstruction or inflammation. Appendix is normal. Vascular structures: Normal caliber abdominal aorta. Lymph nodes: Unremarkable. Miscellaneous: No ascites. No free air. Pelvic Organs: There is a 4.6 x 3.3 cm simple appearing right adnexal cyst. Bones: No acute abnormality. No suspicious bone lesion. IMPRESSION: There is a 4.6 cm simple appearing right adnexal cyst. This does not require dedicated follow-up. However, if there is concern for ovarian torsion pelvic ultrasound would be recommended. Please note that all CT scans at this facility use dose modulation, iterative reconstruction, and/or weight-based dosing when appropriate to reduce radiation dose to as low as reasonably achievable. Dictated by Essie Love MD @ 04/26/2024 7:22:16 PM (Electronically Signed)
[2024-04-26] MEDS: 0.9 % SODIUM CHLORIDE 1000 ml 1,000 ML IV (18:30)
--- NOTE | 2024-04-26 18:30 | ED.GENADULT ---
HPI - General Adult General Date Seen: 04/26/24 <Ivett Gaines MD - Last Filed: 04/27/24 16:23> Chief complaint: Abdominal Pain <Ivett Gaines MD - Last Filed: 04/27/24 16:23> Stated complaint: nausea, stomach pain <Ivett Gaines MD - Last Filed: 04/27/24 16:23> Time Seen by Provider: 04/26/24 17:53 <Ivett Gaines MD - Last Filed: 04/27/24 16:23> Source: patient, RN notes reviewed and old records reviewed <Ivett Gaines MD - Last Filed: 04/27/24 16:23> Mode of arrival: ambulatory <Ivett Gaines MD - Last Filed: 04/27/24 16:23> Limitations: no limitations <Ivett Gainse MD - Last Filed: 04/27/24 16:23> History of Present Illness HPI narrative: Patient is a 28-year-old who is here overnight last night with upper abdominal pain and vomiting. Labs were reassuring, she was treated with Toradol and Zofran said she felt improved after that, discharged at around midnight or little after. She says she woke up at 7:00 a.m. and developed symptoms again of upper abdominal pain and vomiting. She tried using Zofran but says she has not been able to keep anything down. She denies diarrhea. Continues to have upper abdominal pain which does not radiate. She has a Nexplanon, no suspicion of . She gets regular periods, no changes there. She has not had a fever, denies urinary symptoms. Has history of cholecystectomy and . She vapes tobacco, she denies using any marijuana or alcohol currently. <Ivett Gaines MD - Last Filed: 04/27/24 16:23> Related Data Home medications: Previous Rx's ?Medication ?Instructions ?Recorded pediatric multivitamin no.140-iron 1 tab PO DAILY #90 tabs 09/14/23 fumarate 18 mg iron chewable tablet (Children's Chewable Vitamin Complete) trazodone 50 mg tablet 50 mg PO QHS PRN insomnia #90 tabs 10/11/23 fluticasone propionate 50 1 spray intranasal QDAY #16 grams 11/27/23 mcg/actuation nasal spray,suspension (Flonase Allergy Relief) cholecalciferol (vitamin D3) 50 50 mcg PO QDAY #90 caps 11/30/23 mcg (2,000 unit) capsule mupirocin 2 % topical ointment 1 applic topical TID #15 grams 01/02/24 ibuprofen 600 mg tablet 600 mg PO Q6-8H PRN #20 tabs 01/13/24 dextroamphetamine-amphetamine ER 30 mg PO QAM #30 caps 03/27/24 30 mg 24hr capsule,extend release (Adderall XR) metoclopramide HCl 10 mg tablet 10 mg PO Q6H PRN nausea and 04/26/24 (Reglan) vomiting #10 tabs <Ivett Gaines MD - Last Filed: 04/27/24 16:23> Allergies/adverse reactions: Allergies Allergy/AdvReac Type Severity Reaction Status Date / Time amoxicillin Allergy Mild Unknown Verified 04/26/24 18:59 ciprofloxacin Allergy Unknown Verified 04/26/24 18:59 Penicillins Allergy Unknown Rash Verified 04/26/24 18:59 bee venom protein (honey bee) Allergy Verified 04/26/24 18:59 <Ivett Gaines MD - Last Filed: 04/27/24 16:23> Review of Systems Status of ROS: Reports: 6 or more systems reviewed and unremarkable except as noted in History and below <Ivett Gaines MD - Last Filed: 04/27/24 16:23> [facility] Medical History: Medical History Iron deficiency anemia (2016) ?D50.9 - Iron deficiency anemia, unspecified (ICD-10) Insomnia ?G47.00 - Insomnia, unspecified (ICD-10) Marijuana use ?F12.90 - Cannabis use, unspecified, uncomplicated (ICD-10) ADHD ?F90.9 - Attention-deficit hyperactivity disorder, unspecified type (ICD-10) History of alcohol abuse ?F10.11 - Alcohol abuse, in remission (ICD-10) Labor abnormality ?O62.9 - Abnormality of forces of labor, unspecified (ICD-10) Low vitamin D level ?R79.89 - Other specified abnormal findings of blood chemistry (ICD-10) Post-traumatic stress ?F43.10 - Post-traumatic stress disorder, unspecified (ICD-10) Passive suicidal ideations ?R45.851 - Suicidal ideations (ICD-10) Medication management ?Z79.899 - Other correction (current) drug therapy (ICD-10) Persistent headaches ?R51.9 - Headache, unspecified (ICD-10) Nausea ?R11.0 - Nausea (ICD-10) Headache ?R51.9 - Headache, unspecified (ICD-10) Nexplanon insertion ?Z30.017 - Encounter for initial prescription of implantable subdermal contraceptive (ICD-10) Nexplanon in place ?Z97.5 - Presence of (intrauterine) contraceptive device (ICD-10) Viral infection ?B34.9 - Viral infection, unspecified (ICD-10) Obstructive sleep apnea syndrome ?G47.33 - Obstructive sleep apnea (adult) (pediatric) (ICD-10) Obesity with body mass index (BMI) of 30.0 to 39.9 ?E66.9 - Obesity, unspecified (ICD-10) Excessive daytime sleepiness ?G47.19 - Other hypersomnia (ICD-10) Elevated liver function tests ?R79.89 - Other specified abnormal findings of blood chemistry (ICD-10) Difficulty sleeping ?G47.9 - Sleep disorder, unspecified (ICD-10) Anxiety with depression ?F41.8 - Other specified anxiety disorders (ICD-10) Anemia due to acute blood loss ?D62 - Acute posthemorrhagic anemia (ICD-10) Acute cholecystitis ?K81.0 - Acute cholecystitis (ICD-10) <Ivett Gaines MD - Last Filed: 04/27/24 16:23> Surgical History: Surgical History Status post primary low transverse section (2020) ?Z98.891 - History of uterine scar from previous surgery (ICD-10) Status post laparoscopic cholecystectomy ?Z90.49 - Acquired absence of other specified parts of digestive tract (ICD-10) History of ovarian cystectomy (2017) ?Z98.890 - Other specified postprocedural states (ICD-10) ?Z87.42 - Personal history of other diseases of the female genital tract (ICD-10) <Ivett Gaines MD - Last Filed: 04/27/24 16:23> Family History: Family History Maternal Grandfather Diabetes Mother Epilepsy Pulmonary embolism <Ivett Gaines MD - Last Filed: 04/27/24 16:23> Social History: Social History 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 , 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, 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 Social drinker, 3/week Smoking Status: Never smoker Do you use any of these nicotine containing products: None Second hand tobacco smoke exposure: No How often do you have a drink containing alcohol: never How often do you have six or more drinks on one occasion: Never AUDIT-C Alcohol total score: 0 Non-prescribed substance use: denies use Little interest or pleasure in doing things: several days Feeling down, depressed, or hopeless: several days service: No <Ivett Gaines MD - Last Filed: 04/27/24 16:23> Exam Narrative: Exam Narrative: Vital signs as noted above. In general, an alert, nontoxic young woman. At times tearful. Head: Normocephalic, atraumatic. Eyes: Pupils are equal reactive. Extraocular movements are full. Conjunctivae are normal. ENT: Mucous membranes are moist. Throat is normal. Neck: Supple without lymphadenopathy. Heart: Regular rate and rhythm. No murmur or rub. Lungs: Clear bilaterally. No increased work of breathing, crackles or wheezes. Abdomen: Soft, nondistended, bowel sounds present. She has diffuse upper abdominal tenderness, greatest now in the right upper quadrant. She has no rebound guarding or rigidity. Extremities: Well perfused. No edema. No calf tenderness. Pulses intact. Neurologic: Patient is alert and oriented to person and place. Speech is fluent. Face is symmetric. Moves all extremities equally. Affect: Labile. Skin: Warm and dry. Well perfused. <Ivett Gaines MD - Last Filed: 04/27/24 16:23> Const: Vital Signs, click to edit/add: Vital Signs - 24 hr 04/26/24 17:58 04/26/24 20:00 04/26/24 22:00 Temperature 96.8 F L Pulse Rate 72 81 Pulse Rate [Pulse Oximeter] 77 Respiratory Rate 18 16 18 Blood Pressure 119/87 121/74 Blood Pressure [Ri ght Upper Arm] 124/80 Pulse Oximetry 100 99 98 Oxygen Delivery Me thod Room Air <Ivett Gaines MD - Last Filed: 04/27/24 16:23> Vital Signs, click to edit/add: Vital Signs - 24 hr 04/26/24 17:58 04/26/24 20:00 04/26/24 22:00 Temperature 96.8 F L Pulse Rate 72 81 Pulse Rate [Pulse Oximeter] 77 Respiratory Rate 18 16 18 Blood Pressure 119/87 121/74 Blood Pressure [Ri ght Upper Arm] 124/80 Pulse Oximetry 100 99 98 Oxygen Delivery Me thod Room Air <Austen Barclay MD - Last Filed: 04/26/24 21:46> Documenting provider has reviewed patient's vital signs: yes <Ivett Gaines MD - Last Filed: 04/27/24 16:23> Course Course ED Course: I reviewed records from overnight including labs and plain film of the abdomen. Her abdominal exam remains fairly benign but she reports persistence of symptoms and lack of response to treatment at home. Will try giving her some Reglan, Toradol, additional fluids. I have ordered a CT scan as well as a UA, test. She does have a listed history of marijuana use but denies current, last drug test was from over year ago but was negative for THC at that time. Does not have prior visits for abdominal pain/vomiting. Cyclic vomiting felt to be unlikely. Other diagnostic considerations continue to include gastroenteritis, rule out obstruction, colitis, appendicitis, pancreatitis, gastritis or peptic ulcer disease. Labs remain reassuring today. White blood cell count is normal, CRP is 1.6, was to yesterday. Electrolytes shows sodium of 137 a potassium of 3.4, lactate is normal LFTs are normal and lipase is normal. CT scan by my review showed a several cm cyst of the right adnexa, I did not see any significant inflammatory changes in the right lower quadrant, no evidence of obstruction or other acute findings. Final radiology read as follows:FINDINGS: Lower chest: Unremarkable. Liver: There is a subcentimeter hypoattenuating lesion in the right lobe of the liver too small to accurately characterize but likely benign cyst. Gallbladder and bile ducts: The gallbladder is surgically absent. Spleen: Unremarkable. Pancreas: Unremarkable. Adrenal glands: Unremarkable. Kidneys: No kidney or ureteral stones and no hydronephrosis. There is a 1.4 cm benign cyst in the upper pole the right kidney. GI tract: No bowel obstruction or inflammation. Appendix is normal. Vascular structures: Normal caliber abdominal aorta. Lymph nodes: Unremarkable. Miscellaneous: No ascites. No free air. Pelvic Organs: There is a 4.6 x 3.3 cm simple appearing right adnexal cyst. Bones: No acute abnormality. No suspicious bone lesion. IMPRESSION: There is a 4.6 cm simple appearing right adnexal cyst. This does not require dedicated follow-up. However, if there is concern for ovarian torsion pelvic ultrasound would be recommended. I did do a pelvic exam, she does not have any adnexal tenderness bilaterally. I do not think this represents torsion, her symptoms are all in her upper abdomen. I did review this with Dr. Jay as well and she agrees in the absence of pelvic pain or tenderness that torsion is not the cause of her symptoms. She has not yet provided a urine sample. I am going to sign this out to Dr. Barclay as we need to make sure that she is not . In case of a normal UA negative test, can be discharged home for symptomatic treatment. Return for worsening and see primary care find improving over the next couple of days. <Ivett Gaines MD - Last Filed: 04/27/24 16:23> Reevaluation(s) Reevaluation #1: Patient's UA does show signs of urinary tract infection. This is sent for culture and we did place her on Bactrim Double Strength twice a day for 5 days. <Austen Barclay MD - Last Filed: 04/26/24 21:46> Vital Signs Vital signs: Initial Vital Signs Temperature 96.8 F L 04/26/24 17:58 Temperature Source Temporal Artery Scan 04/26/24 17:58 Pulse Rate 77 04/26/24 17:58 Pulse Rhythm Regular 04/26/24 17:58 Respiratory Rate 18 04/26/24 17:58 Blood Pressure 124/80 04/26/24 17:58 Blood Pressure Mean 94 04/26/24 17:58 Blood Pressure Position Supine 04/26/24 17:58 Pulse Oximetry 100 04/26/24 17:58 Oxygen Delivery Method Room Air 04/26/24 17:58 Vital Signs Temperature 96.8 F L 04/26/24 17:58 Pulse Rate 77 04/26/24 17:58 Respiratory Rate 18 04/26/24 17:58 Blood Pressure 124/80 04/26/24 17:58 Pulse Oximetry 100 04/26/24 17:58 Oxygen Delivery Method Room Air 04/26/24 17:58 Temperature 96.8 F L 04/26/24 17:58 Pulse Rate 81 04/26/24 22:00 Respiratory Rate 18 04/26/24 22:00 Blood Pressure 121/74 04/26/24 22:00 Pulse Oximetry 98 04/26/24 22:00 Oxygen Delivery Method Room Air 04/26/24 17:58 <Ivett Gaines MD - Last Filed: 04/27/24 16:23> Initial Vital Signs Temperature 96.8 F L 04/26/24 17:58 Temperature Source Temporal Artery Scan 04/26/24 17:58 Pulse Rate 77 04/26/24 17:58 Pulse Rhythm Regular 04/26/24 17:58 Respiratory Rate 18 04/26/24 17:58 Blood Pressure 124/80 04/26/24 17:58 Blood Pressure Mean 94 04/26/24 17:58 Blood Pressure Position Supine 04/26/24 17:58 Pulse Oximetry 100 04/26/24 17:58 Oxygen Delivery Method Room Air 04/26/24 17:58 Vital Signs Temperature 96.8 F L 04/26/24 17:58 Pulse Rate 77 04/26/24 17:58 Respiratory Rate 18 04/26/24 17:58 Blood Pressure 124/80 04/26/24 17:58 Pulse Oximetry 100 04/26/24 17:58 Oxygen Delivery Method Room Air 04/26/24 17:58 Temperature 96.8 F L 04/26/24 17:58 Pulse Rate 81 04/26/24 22:00 Respiratory Rate 18 04/26/24 22:00 Blood Pressure 121/74 04/26/24 22:00 Pulse Oximetry 98 04/26/24 22:00 Oxygen Delivery Method Room Air 04/26/24 17:58 <Austen Barclay MD - Last Filed: 04/26/24 21:46> Medications Administered Medications: Discontinued Medications Generic Name Dose Route Start Last Admin Trade Name Freq PRN Reason Stop Dose Admin Diphenhydramine HCl 25 mg 04/26/24 18:24 04/26/24 18:44 Diphenhydramine 50 Mg/Ml Inj IVP 04/26/24 18:25 25 mg ONCE ONE Administration Sodium Chloride 1,000 mls @ 1,000 mls/hr 04/26/24 18:30 04/26/24 20:30 0.9 % Sodium Chloride 1000 Ml IV 04/26/24 19:29 Infused .Q1H OBINNA Infusion Metoclopramide HCl 10 mg/ 102 mls @ 306 mls/hr 04/26/24 18:24 04/26/24 19:51 Sodium Chloride IVPB 04/26/24 18:25 Infused ONCE ONE Infusion Ketorolac Tromethamine 15 mg 04/26/24 18:24 04/26/24 18:41 Ketorolac 15 Mg/Ml Inj IVP 04/26/24 18:25 15 mg ONCE ONE Administration <Ivett Gaines MD - Last Filed: 04/27/24 16:23> Discontinued Medications Generic Name Dose Route Start Last Admin Trade Name Freq PRN Reason Stop Dose Admin Diphenhydramine HCl 25 mg 04/26/24 18:24 04/26/24 18:44 Diphenhydramine 50 Mg/Ml Inj IVP 04/26/24 18:25 25 mg ONCE ONE Administration Sodium Chloride 1,000 mls @ 1,000 mls/hr 04/26/24 18:30 04/26/24 20:30 0.9 % Sodium Chloride 1000 Ml IV 04/26/24 19:29 Infused .Q1H OBINNA Infusion Metoclopramide HCl 10 mg/ 102 mls @ 306 mls/hr 04/26/24 18:24 04/26/24 19:51 Sodium Chloride IVPB 04/26/24 18:25 Infused ONCE ONE Infusion Ketorolac Tromethamine 15 mg 04/26/24 18:24 04/26/24 18:41 Ketorolac 15 Mg/Ml Inj IVP 04/26/24 18:25 15 mg ONCE ONE Administration <Austen Barclay MD - Last Filed: 04/26/24 21:46> Medical Decision Making Lab Data Labs: Lab Results 04/26/24 04/26/24 Range/Units 18:27 21:00 WBC 8.19 (4.50-11.00) K/uL RBC 4.53 (4.00-5.20) m/uL Hgb 12.9 (12.0-16.0) gm/dL Hct 38.4 (33.0-51.0) % MCV 85 (80-100) fL MCH 29 (26-34) pg MCHC 34 (32-36) gm/dL RDW Coeff of Elena 12.4 (11.5-15.5) % Plt Count 354 (140-440) K/uL Neut % (Auto) 69.4 (42.0-72.0) % Lymph % (Auto) 21.2 (20-44) % [place] % (Auto) 7.4 (0.0-11.0) % Eos % (Auto) 1.1 (0.0-7.0) % Baso % (Auto) 0.5 (0.0-3.0) % Neut # (Auto) 5.68 (1.7-7.0) K/uL Lymph # (Auto) 1.74 (0.90-2.90) K/uL [place] # (Auto) 0.60 (0.00-0.90) K/UL Eos # (Auto) 0.09 (0.00-0.50) K/uL Baso # (Auto) 0.04 (0.00-0.30) K/uL Abs Immat Gran (auto) 0.03 (0.00-0.30) K/uL Imm/Tot Granulo (auto) 0.4 % Sodium 137 (135-149) mmol/L Potassium 3.4 L (3.6-5.1) mmol/L Chloride 102 (96-114) mmol/L Carbon Dioxide 27 (20-32) mmol/L Anion Gap 8 (7-15) mEq/L BUN 7 (5-24) mg/dL Creatinine 1.0 (0.5-1.5) mg/dL Estimated Creat Clear 63.77 Estimated GFR 79 ml/min Glucose 107 (60-115) mg/dL Lactate 1.3 (0.5-1.9) mmol/L Calcium 9.5 (8.4-10.6) mg/dL Total Bilirubin 0.7 (0.1-1.5) mg/dL Direct Bilirubin 0.3 (0.0-0.5) mg/dL AST 22 (12-35) U/L ALT 14 (4-35) U/L Alkaline Phosphatase 67 (40-150) U/L C-Reactive Protein 1.6 H (0.5-1.0) mg/dL Total Protein 7.9 (6.0-8.3) g/dL Albumin 4.7 (3.3-5.0) g/dL Lipase 143 (23-300) U/L Urine Color Yellow (Yellow) Urine Appearance Cloudy A (Clear) Urine pH 6.0 (5.0-8.5) Ur Specific [place] 1.010 (1.000-1.030) Urine Protein 3+ A (Negative) Urine Glucose (UA) Negative (Negative) Urine Ketones Trace A (Negative) Urine Blood 2+ A (Negative) Urine Nitrite Negative (Negative) Urine Bilirubin Negative (Negative) Urine Urobilinogen 0.2 (0.2-1.0) Ur Leukocyte Esterase 1+ A (Negative) Urine RBC 0-2 (0-2) Urine WBC >100 A (0-5) Ur Squamous Epith Cells None (None-Few) Urine Bacteria Moderate A (None) Urine HCG, Qual Negative (Negative) Urine Opiates Screen Negative (Negative) Ur Oxycodone Screen Negative (Negative) Urine Methadone Screen Negative (Negative) Ur Barbiturates Screen Negative (Negative) U Tricyclic Antidepress Negative (Negative) Ur Phencyclidine Scrn Negative (Negative) Ur Amphetamines Screen POSITIVE A (Negative) U Methamphetamines Scrn Negative (Negative) U Benzodiazepines Scrn Negative (Negative) Urine Cocaine Screen Negative (Negative) U Marijuana (THC) Screen Negative (Negative) Ur Drug Screen Comment See Note <Ivett Gaines MD - Last Filed: 04/27/24 16:23> Lab Results 04/26/24 04/26/24 Range/Units 18:27 21:00 WBC 8.19 (4.50-11.00) K/uL RBC 4.53 (4.00-5.20) m/uL Hgb 12.9 (12.0-16.0) gm/dL Hct 38.4 (33.0-51.0) % MCV 85 (80-100) fL MCH 29 (26-34) pg MCHC 34 (32-36) gm/dL RDW Coeff of Elena 12.4 (11.5-15.5) % Plt Count 354 (140-440) K/uL Neut % (Auto) 69.4 (42.0-72.0) % Lymph % (Auto) 21.2 (20-44) % [place] % (Auto) 7.4 (0.0-11.0) % Eos % (Auto) 1.1 (0.0-7.0) % Baso % (Auto) 0.5 (0.0-3.0) % Neut # (Auto) 5.68 (1.7-7.0) K/uL Lymph # (Auto) 1.74 (0.90-2.90) K/uL [place] # (Auto) 0.60 (0.00-0.90) K/UL Eos # (Auto) 0.09 (0.00-0.50) K/uL Baso # (Auto) 0.04 (0.00-0.30) K/uL Abs Immat Gran (auto) 0.03 (0.00-0.30) K/uL Imm/Tot Granulo (auto) 0.4 % Sodium 137 (135-149) mmol/L Potassium 3.4 L (3.6-5.1) mmol/L Chloride 102 (96-114) mmol/L Carbon Dioxide 27 (20-32) mmol/L Anion Gap 8 (7-15) mEq/L BUN 7 (5-24) mg/dL Creatinine 1.0 (0.5-1.5) mg/dL Estimated Creat Clear 63.77 Estimated GFR 79 ml/min Glucose 107 (60-115) mg/dL Lactate 1.3 (0.5-1.9) mmol/L Calcium 9.5 (8.4-10.6) mg/dL Total Bilirubin 0.7 (0.1-1.5) mg/dL Direct Bilirubin 0.3 (0.0-0.5) mg/dL AST 22 (12-35) U/L ALT 14 (4-35) U/L Alkaline Phosphatase 67 (40-150) U/L C-Reactive Protein 1.6 H (0.5-1.0) mg/dL Total Protein 7.9 (6.0-8.3) g/dL Albumin 4.7 (3.3-5.0) g/dL Lipase 143 (23-300) U/L Urine Color Yellow (Yellow) Urine Appearance Cloudy A (Clear) Urine pH 6.0 (5.0-8.5) Ur Specific [place] 1.010 (1.000-1.030) Urine Protein 3+ A (Negative) Urine Glucose (UA) Negative (Negative) Urine Ketones Trace A (Negative) Urine Blood 2+ A (Negative) Urine Nitrite Negative (Negative) Urine Bilirubin Negative (Negative) Urine Urobilinogen 0.2 (0.2-1.0) Ur Leukocyte Esterase 1+ A (Negative) Urine RBC 0-2 (0-2) Urine WBC >100 A (0-5) Ur Squamous Epith Cells None (None-Few) Urine Bacteria Moderate A (None) Urine HCG, Qual Negative (Negative) Urine Opiates Screen Negative (Negative) Ur Oxycodone Screen Negative (Negative) Urine Methadone Screen Negative (Negative) Ur Barbiturates Screen Negative (Negative) U Tricyclic Antidepress Negative (Negative) Ur Phencyclidine Scrn Negative (Negative) Ur Amphetamines Screen POSITIVE A (Negative) U Methamphetamines Scrn Negative (Negative) U Benzodiazepines Scrn Negative (Negative) Urine Cocaine Screen Negative (Negative) U Marijuana (THC) Screen Negative (Negative) Ur Drug Screen Comment See Note <Austen Barclay MD - Last Filed: 04/26/24 21:46> Discharge Plan Discharge Clinical Impression: Abdominal pain, Vomiting, Urinary tract infection <Ivett Gaines MD - Last Filed: 04/27/24 16:23> Patient Disposition: Home, Self-Care <Ivett Gaines MD - Last Filed: 04/27/24 16:23> Condition: Improved <Ivett Gaines MD - Last Filed: 04/27/24 16:23> Instructions: Urinary Tract Infection in Women (ED), Abdominal Pain (ED) <Ivett Gaines MD - Last Filed: 04/27/24 16:23> Additional Instructions: Your tests today are reassuring. Your blood work remains normal. You do have a 4 cm cyst on her right ovary, which I do not think is directly related to your current symptoms. These usually resolve on their own, but you can follow-up with gynecology in 6-8 weeks for re-evaluation. I am prescribing Reglan, a different anti nausea medicine just in case you need it. Otherwise, ibuprofen and/or Tylenol, clear liquids today. Advance tomorrow as able. Return for worsening, see primary care if symptoms are not improving. also Bactrim Double Strength twice daily for 5 days. <Ivett Gaines MD - Last Filed: 04/27/24 16:23> Activity Level: No Restrictions <Ivett Gaines MD - Last Filed: 04/27/24 16:23> No Restrictions <Austen Barclay MD - Last Filed: 04/26/24 21:46> Discharge Diet: Regular <Ivett Gaines MD - Last Filed: 04/27/24 16:23> Regular <Austen Barclay MD - Last Filed: 04/26/24 21:46> Prescriptions: New metoclopramide HCl [Reglan] 10 mg tablet 10 mg PO Q6H PRN (Reason: nausea and vomiting) Qty: 10 0RF No Action fluticasone propionate [Flonase Allergy Relief] 50 mcg/actuation spray,suspension 1 spray intranasal QDAY Qty: 16 6RF Rx Instructions: administer into each nostril trazodone 50 mg tablet 50 mg PO QHS PRN (Reason: insomnia) Qty: 90 3RF mupirocin 2 % ointment 1 applic topical TID Qty: 15 0RF ibuprofen 600 mg tablet 600 mg PO Q6-8H PRNQty: 20 0RF Child Chewable Vitamn Complete 18 mg iron tablet,chewable 1 tab PO DAILY Qty: 90 3RF cholecalciferol (vitamin D3) 50 mcg (2,000 unit) capsule 50 mcg PO QDAY Qty: 90 3RF Rx Instructions: to start after she finishes 50,000 units weekly dextroamphetamine-amphetamine [Adderall XR] 30 mg capsule,extended release 24hr 30 mg PO QAM Qty: 30 0RF <Ivett Gaines MD - Last Filed: 04/27/24 16:23> Follow Up/Referrals: Milagros Sal, DIRECTOR OF INVESTIGATIONS, [employer] [Primary Care Provider] - <Ivett Gaines MD - Last Filed: 04/27/24 16:23> Stand Alone Forms: MyHealth Info Instructions <Ivett Gaines MD - Last Filed: 04/27/24 16:23> Discharge Comment: [facility] Bactrim <Ivett Gaines MD - Last Filed: 04/27/24 16:23> [facility] Bactrim <Austen Barclay MD - Last Filed: 04/26/24 21:46>
[2024-04-26 18:40] LABS: Lactate Sepsis w/Reflex* 1.3 mmol/L (0.5-1.9)
[2024-04-26] MEDS: KETOROLAC 15 MG/ML inj IVP (18:41)
[2024-04-26 18:42] LABS: Basophils Absolute Auto 0.04 K/uL (0.00-0.30); Basophils Percent Auto 0.5 % (0.0-3.0); Eosinophils Absolute Auto 0.09 K/uL (0.00-0.50); Eosinophils Percent Auto 1.1 % (0.0-7.0); Hematocrit 38.4 % (33.0-51.0); Hemoglobin* 12.9 gm/dL (12.0-16.0); Immature Granulocytes Abs Auto 0.03 K/uL (0.00-0.30); Immature Granulocytes Pct Auto 0.4 %; Lymphocytes Absolute Auto 1.74 K/uL (0.90-2.90); Lymphocytes Percent Auto 21.2 % (20-44); Mean Corpuscular HGB Conc 34 gm/dL (32-36); Mean Corpuscular Hemoglobin 29 pg (26-34); Mean Corpuscular Volume 85 fL (80-100); Monocytes Percent Auto 7.4 % (0.0-11.0); Neutrophils Absolute Auto 5.68 K/uL (1.7-7.0); Neutrophils Percent Auto 69.4 % (42.0-72.0); Platelet Count* 354 K/uL (140-440); RDW Coefficient of Variation % 12.4 % (11.5-15.5); Red Blood Count 4.53 m/uL (4.00-5.20); White Blood Count* 8.19 K/uL (4.50-11.00)
[2024-04-26] MEDS: diphenhydrAMINE 50 MG/ML inj 25 MG IVP (18:44)
[2024-04-26 18:48] LABS: Slide Review Reflex No
[2024-04-26 18:56] LABS: Albumin* 4.7 g/dL (3.3-5.0)
[2024-04-26 18:57] LABS: Chloride* 102 mmol/L (96-114); Potassium* 3.4 mmol/L (3.6-5.1); Sodium* 137 mmol/L (135-149)
[2024-04-26 18:59] LABS: Alanine Aminotransferase* 14 U/L (4-35); Alkaline Phosphatase* 67 U/L (40-150); Aspartate Amino Transferase* 22 U/L (12-35); Bilirubin Direct* 0.3 mg/dL (0.0-0.5); Bilirubin Total* 0.7 mg/dL (0.1-1.5); Est. Creatinine Clearance* 63.77; Estimated Glomerular Filt Rate 79 ml/min; Lipase* 143 U/L (23-300); Total Protein* 7.9 g/dL (6.0-8.3)
[2024-04-26] MEDS: METOCLOPRAMIDE HCL 10 MG in 0.9 % SODIUM CHLORIDE 100 ml 100 ML 306 MG IVPB (18:59)
[2024-04-26 19:00] LABS: Anion Gap 8 mEq/L (7-15); Blood Urea Nitrogen* 7 mg/dL (5-24); Carbon Dioxide* 27 mmol/L (20-32); Glucose* 107 mg/dL (60-115)
[2024-04-26 19:01] LABS: Calcium* 9.5 mg/dL (8.4-10.6)
[2024-04-26 19:03] LABS: C Reactive Protein* 1.6 mg/dL (0.5-1.0)
[2024-04-26 20:00] VITALS: BP 119/87; PULSE 72; RESP 16; O2SAT 99
[2024-04-26 21:06] LABS: Appearance Urine Cloudy (Clear); Bilirubin Urine Negative (Negative); Blood Urine 2+ (Negative); Color Urine Yellow (Yellow); Glucose Urine Negative (Negative); Ketones Urine Trace (Negative); Leukocyte Esterase Urine 1+ (Negative); Nitrite Urine Negative (Negative); Protein Urine 3+ (Negative); Urobilinogen Urine 0.2 (0.2-1.0)
[2024-04-26 21:08] LABS: Ur HCG Qualitative* Negative (Negative)
[2024-04-26 21:16] LABS: Amphetamine Screen Urine POSITIVE (Negative); Barbiturate Screen Urine Negative (Negative); Benzodiazepines Screen Urine Negative (Negative); Cannabinoid Screen Urine Negative (Negative); Cocaine Screen Urine Negative (Negative); Methadone Screen Urine Negative (Negative); Methamphetamines Screen Urine Negative (Negative); Opiate Screen Urine Negative (Negative); Oxycodone Screen Urine Negative (Negative); Phencyclidine Screen Urine Negative (Negative); Tricyclic Antidepressant Urine Negative (Negative)
[2024-04-26 21:29] LABS: Bacteria Urine Moderate; RBC Urine 0-2 (0-2); WBC Urine >100 (0-5)
[2024-04-26 22:00] VITALS: BP 121/74; PULSE 81; RESP 18; O2SAT 98
== END 2024-04-26 22:03 | disposition home or self-care (01) ==
PROVIDERS: Emergency Provider Emergency Medicine; PCP Nurse Practitioner Family
DX: N39.0 Urinary tract infection, site not specified (principal); R10.9 Unspecified abdominal pain; R11.10 Vomiting, unspecified
CPT/HCPCS: 36415; 74177; 80048; 80053; 80076; 80306; 81001; 81025; 83605; 83690; 85025; 86140; 87086; 87186; 96365; 96375; 99283; 99284; 99285; J1200; J1885; J2765; J7030; Q9967

== ENCOUNTER 2024-04-28 02:39 | Emergency (ER) | payer OTHER, SELFPAY ==
[2024-04-28 02:45] VITALS: BP 113/78; PULSE 76; RESP 16; TEMP 36.2; O2SAT 97; BMI 29.3
--- NOTE | 2024-04-28 02:49 | ED.NAVMDI ---
HPI - Nausea/Vomiting/Diarrhea General Time Seen by Provider: 02:49 Date Seen: 04/28/24 Chief complaint: Nausea/Vomiting Stated complaint: nausea Time Seen by Provider: 04/28/24 02:41 Source: patient, RN notes reviewed and old records reviewed Mode of arrival: ambulatory Limitations: no limitations History of Present Illness HPI Narrative: Patient is a very pleasant 28-year-old female with medical history including recent gastroenteritis, abdominal pain, ADHD, past history of alcohol abuse and marijuana use who comes to the emergency room for evaluation regarding ongoing vomiting. She states when I enter the room ?I feel broken?. Patient notes the onset of nausea on April 24 followed by vomiting. Thereafter she experienced significant of belly pain in the left upper quadrant. She was seen on April [address] was reassuring and there was an incidental finding of a 4 cm cyst in the right lower quadrant felt by Ob not to be part of the symptoms patient was experiencing. She was improved on Toradol and Zofran and fluids and discharged home. However, she states the Zofran has not been working and she has had persistent vomiting. She notes that there are a few times where she will not vomit for a few hours but overall she has been unable to keep anything down including fluids. She notes that she has not had a fever but feels very chilled and fatigued. She does not have a gallbladder as it was removed in 2020. She notes that she is getting dizzy. She did have Bactrim given to her for UTI. She has been taking the medicine but unsure if she has been absorbing it or if she has been vomiting it up. She notes that she has tried to take a hot bath or shower occasionally thinking this would help relaxer but she continues to vomit. She denies any unusual foods, uncooked foods, recent travel, ingestion of seafood. She has a toddler at home but he is healthy. Denies any ill exposures. Gaurav states her pain is change in now involves the entire upper aspect of her abdomen. She denies right lower quadrant pain. She denies dysuria. No personal or familial history of ulcerative colitis or Crohn's disease. Adamantly denies any marijuana use. Alcohol use is occasional and did not occur prior to onset of symptoms. Associated nausea: Yes Related Data Previous Rx's ?Medication ?Instructions ?Recorded pediatric multivitamin no.140-iron 1 tab PO DAILY #90 tabs 09/14/23 fumarate 18 mg iron chewable tablet (Children's Chewable Vitamin Complete) trazodone 50 mg tablet 50 mg PO QHS PRN insomnia #90 tabs 10/11/23 fluticasone propionate 50 1 spray intranasal QDAY #16 grams 11/27/23 mcg/actuation nasal spray,suspension (Flonase Allergy Relief) cholecalciferol (vitamin D3) 50 50 mcg PO QDAY #90 caps 11/30/23 mcg (2,000 unit) capsule mupirocin 2 % topical ointment 1 applic topical TID #15 grams 01/02/24 ibuprofen 600 mg tablet 600 mg PO Q6-8H PRN #20 tabs 01/13/24 dextroamphetamine-amphetamine ER 30 mg PO QAM #30 caps 03/27/24 30 mg 24hr capsule,extend release (Adderall XR) metoclopramide HCl 10 mg tablet 10 mg PO Q6H PRN nausea and 04/26/24 (Reglan) vomiting #10 tabs Allergies Allergy/AdvReac Type Severity Reaction Status Date / Time amoxicillin Allergy Mild Unknown Verified 04/26/24 18:59 ciprofloxacin Allergy Unknown Verified 04/26/24 18:59 Penicillins Allergy Unknown Rash Verified 04/26/24 18:59 bee venom protein (honey bee) Allergy Verified 04/26/24 18:59 Review of Systems Status of ROS: Reports: 10 or more systems reviewed and unremarkable except as noted in History and below Const: Reports: chills and fatigue; Denies: fever ENMT: Denies: throat pain, throat swelling or nasal discharge Cardio: Denies: chest pain or shortness of breath with exertion Resp: Denies: shortness of breath or cough GI: Reports: abdominal pain, nausea and vomiting; Denies: diarrhea, constipation, bloating or blood in stool : Denies: painful urination Musculo: Denies: back pain Endo: Reports: fatigue Allergy/Immuno: Denies: throat swelling PFSH PFS Medical History Iron deficiency anemia (2016) ?D50.9 - Iron deficiency anemia, unspecified (ICD-10) Insomnia ?G47.00 - Insomnia, unspecified (ICD-10) Marijuana use ?F12.90 - Cannabis use, unspecified, uncomplicated (ICD-10) ADHD ?F90.9 - Attention-deficit hyperactivity disorder, unspecified type (ICD-10) History of alcohol abuse ?F10.11 - Alcohol abuse, in remission (ICD-10) Labor abnormality ?O62.9 - Abnormality of forces of labor, unspecified (ICD-10) Low vitamin D level ?R79.89 - Other specified abnormal findings of blood chemistry (ICD-10) Post-traumatic stress ?F43.10 - Post-traumatic stress disorder, unspecified (ICD-10) Passive suicidal ideations ?R45.851 - Suicidal ideations (ICD-10) Medication management ?Z79.899 - Other senior living (current) drug therapy (ICD-10) Persistent headaches ?R51.9 - Headache, unspecified (ICD-10) Nausea ?R11.0 - Nausea (ICD-10) Headache ?R51.9 - Headache, unspecified (ICD-10) Nexplanon insertion ?Z30.017 - Encounter for initial prescription of implantable subdermal contraceptive (ICD-10) Nexplanon in place ?Z97.5 - Presence of (intrauterine) contraceptive device (ICD-10) Viral infection ?B34.9 - Viral infection, unspecified (ICD-10) Obstructive sleep apnea syndrome ?G47.33 - Obstructive sleep apnea (adult) (pediatric) (ICD-10) Obesity with body mass index (BMI) of 30.0 to 39.9 ?E66.9 - Obesity, unspecified (ICD-10) Excessive daytime sleepiness ?G47.19 - Other hypersomnia (ICD-10) Elevated liver function tests ?R79.89 - Other specified abnormal findings of blood chemistry (ICD-10) Difficulty sleeping ?G47.9 - Sleep disorder, unspecified (ICD-10) Anxiety with depression ?F41.8 - Other specified anxiety disorders (ICD-10) Anemia due to acute blood loss ?D62 - Acute posthemorrhagic anemia (ICD-10) Acute cholecystitis ?K81.0 - Acute cholecystitis (ICD-10) Surgical History Status post primary low transverse section (2020) ?Z98.891 - History of uterine scar from previous surgery (ICD-10) Status post laparoscopic cholecystectomy ?Z90.49 - Acquired absence of other specified parts of digestive tract (ICD-10) History of ovarian cystectomy (2018) ?Z98.890 - Other specified postprocedural states (ICD-10) ?Z87.42 - Personal history of other diseases of the female genital tract (ICD-10) Family History Maternal Grandfather Diabetes Mother Epilepsy Pulmonary embolism Social History 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 , 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[place], 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 Social drinker, 3/week Smoking Status: Never smoker Do you use any of these nicotine containing products: None Second hand tobacco smoke exposure: No How often do you have a drink containing alcohol: never How often do you have six or more drinks on one occasion: Never AUDIT-C Alcohol total score: 0 Non-prescribed substance use: denies use Little interest or pleasure in doing things: several days Feeling down, depressed, or hopeless: several days service: No Exam Narrative: Exam Narrative: Alert and oriented. Dramatic statements made and clearly she does not feel well. Occasionally tearful. EOM is full. Lips are dry. Heart with a regular rate and rhythm and lungs are clear bilaterally. Abdomen shows tenderness in the upper abdomen left greater than right and into the left lower quadrant. Bowel sounds are present. Lower extremities without edema. No calf tenderness. Negative Homans sign. Const: Vital Signs, click to edit/add: Vital Signs - 24 hr 04/28/24 02:45 Temperature 97.2 F L Pulse Rate [Left P ulse Oximeter] 76 Respiratory Rate 16 Blood Pressure [Ri ght Upper Arm] 113/78 Pulse Oximetry 97 Oxygen Delivery Me thod Room Air Documenting provider has reviewed patient's vital signs: yes Course Course ED Course: Patient is presenting with 5 days of ongoing upper abdominal pain associated with vomiting but no fever or diarrhea. Differential diagnosis includes but is not limited to pancreatitis, cyclic vomiting, gastritis, colitis. At this time patient has no pain in the right lower quadrant. Recommend labs to include CBC, comprehensive panel, lipase, lactate, urinalysis. Will give patient fluids, Zofran 4 mg and Rocephin 1 g IV as it is unsure if she has been able to treat her UTI. Culture has still not resulted. If creatinine in appropriate will add Toradol to her medications. In spite of patient complaint of persistent vomiting for 5 days pulse is normal and blood pressure normal as well. During my interview and since arrival no reports of vomiting. Vital Signs Vital signs: Initial Vital Signs Temperature 97.2 F L 04/28/24 02:45 Temperature Source Temporal Artery Scan 04/28/24 02:45 Pulse Rate 76 04/28/24 02:45 Pulse Rhythm Regular 04/28/24 02:45 Respiratory Rate 16 04/28/24 02:45 Blood Pressure 113/78 04/28/24 02:45 Blood Pressure Mean 89 04/28/24 02:45 Blood Pressure Position Sitting 04/28/24 02:45 Pulse Oximetry 97 04/28/24 02:45 Oxygen Delivery Method Room Air 04/28/24 02:45 Vital Signs Temperature 97.2 F L 04/28/24 02:45 Pulse Rate 76 04/28/24 02:45 Respiratory Rate 16 04/28/24 02:45 Blood Pressure 113/78 04/28/24 02:45 Pulse Oximetry 97 04/28/24 02:45 Oxygen Delivery Method Room Air 04/28/24 02:45 Temperature 97.2 F L 04/28/24 02:45 Pulse Rate 76 04/28/24 02:45 Respiratory Rate 16 04/28/24 02:45 Blood Pressure 113/78 04/28/24 02:45 Pulse Oximetry 97 04/28/24 02:45 Oxygen Delivery Method Room Air 04/28/24 02:45 Medications Administered Medications: Discontinued Medications Generic Name Dose Route Start Last Admin Trade Name Freq PRN Reason Stop Dose Admin Sodium Chloride 1,000 mls @ 1,000 mls/hr 04/28/24 03:04 04/28/24 04:25 0.9 % Sodium Chloride 1000 Ml IV 04/28/24 04:03 Infused .Q1H OBINNA Infusion Ceftriaxone Sodium 1 gm/ 100 mls @ 200 mls/hr 04/28/24 03:01 04/28/24 05:56 Sodium Chloride IVPB 04/28/24 03:02 Infused ONCE ONE Infusion Pantoprazole Sodium 40 mg/ 100 mls @ 10 mls/hr 04/28/24 03:44 04/28/24 03:51 Sodium Chloride IVPB 04/28/24 13:43 10 mls/hr ONCE ONE Administration Ketorolac Tromethamine 15 mg 04/28/24 03:43 04/28/24 03:51 Ketorolac 15 Mg/Ml Inj IVP 04/28/24 03:44 15 mg ONCE ONE Administration Ondansetron HCl 4 mg 04/28/24 03:01 04/28/24 03:20 Ondansetron 2 Mg/Ml Inj IVP 04/28/24 03:02 4 mg ONCE ONE Administration Ondansetron HCl 4 mg 04/28/24 07:29 04/28/24 07:50 Ondansetron 2 Mg/Ml Inj IVP 04/28/24 07:30 4 mg ONCE ONE Administration Promethazine HCl 12.5 mg 04/28/24 04:44 04/28/24 05:09 Promethazine 25 Mg/Ml Inj IVP 04/28/24 04:45 12.5 mg ONCE ONE Administration MDM - Nausea/Vomiting/Diarrhea MDM Narrative Medical decision making narrative: 1. Vomiting-no vomiting was observed during patient's time in the ED until near the end of her stay. This was after an incident where she had asked for ice chips but we are going to hold off in the event that she needed a surgical consultation. She stated that if she was not allowed ice chips than she needed something for nausea. As the nurses were walking away she demonstrated some retching in the room. Overnight she received Zofran, Phenergan and repeat of Zofran. She was sleeping soundly throughout much of the night. At this time CT and laboratory values are reassuring and show no evidence of pancreatitis, marijuana to indicate cyclic vomiting, small-bowel obstruction, colitis. She was treated for gastritis with Protonix 40 mg IV. I would like her to continue a PPI for the next 2 weeks. Would ask that she push fluids including Gatorade Powerade and juices as well. 2. Abdominal pain -treated with Toradol in the emergency room. Patient was able to sleep. Prior to departure she did ask for something for pain but at this time I do not feel comfortable using narcotics when we have not established hussein she is feeling this way. Her LFTs are within normal limits. Again, perhaps this is related to a gastritis as she has dropped her hemoglobin by 2 points although there was no evidence of dehydration and this could reflect some volume status. I asked if patient was able to leave a stool sample and she was not unable to. I did request a digital exam but she states that she has some PTSD from previous experiences and would rather not do that. She realizes that she may have blood in her stool. There was no evidence of active bleeding on the CT. Again this may come back to gastritis and we will be treating with a PPI. I would like her to follow up with her primary MD this week for recheck of hemoglobin. She will also need to return for worsening pain or noticeable blood in her stool. Hemoglobin went from 12.9-10.6. 3. UTI-patient given ceftriaxone 1 g IV while in the ED. She may restart her Bactrim this evening. I have checked at the beginning and end of her stay and the cultures are not available at this time. 4. Disposition-I was able to speak to our surgeon on-call in regards to this patient. Whitney had actually requested to be discharged at 0500 hours. She is anxious to go now. We have spoken in regards to monitoring her stools for blood, recheck of her hemoglobin, restart of her antibiotic this evening, continuation of a PPI. The phone number for the surgeon is also provided in the event that she is not improving. She may need to be evaluated for possible upper endoscopy. Note there was mild periportal edema noted on the CT questionable sign of fluid overload. We gave 1 L of fluid last night and patient's labs certainly had no evidence of dehydration. Medical Records Attestation: I reviewed the patient's medical records. Lab Data Attestation: I reviewed the patient's lab results. Labs: Lab Results 04/28/24 04/28/24 04/28/24 Range/Units 03:08 03:50 05:22 WBC 6.49 (4.50-11.00) K/uL RBC 3.71 L (4.00-5.20) m/uL Hgb 10.6 L (12.0-16.0) gm/dL Hct 31.5 L (33.0-51.0) % MCV 85 (80-100) fL MCH 29 (26-34) pg MCHC 34 (32-36) gm/dL RDW Coeff of Elena 12.5 (11.5-15.5) % Plt Count 298 (140-440) K/uL Neut % (Auto) 75.4 H (42.0-72.0) % Lymph % (Auto) 16.8 L (20-44) % [place] % (Auto) 6.2 (0.0-11.0) % Eos % (Auto) 0.8 (0.0-7.0) % Baso % (Auto) 0.6 (0.0-3.0) % Neut # (Auto) 4.90 (1.7-7.0) K/uL Lymph # (Auto) 1.10 (0.90-2.90) K/uL [place] # (Auto) 0.40 (0.00-0.90) K/UL Eos # (Auto) 0.05 (0.00-0.50) K/uL Baso # (Auto) 0.04 (0.00-0.30) K/uL Abs Immat Gran (auto) 0.01 (0.00-0.30) K/uL Imm/Tot Granulo (auto) 0.2 % Sodium 137 (135-149) mmol/L Potassium 3.5 L (3.6-5.1) mmol/L Chloride 104 (96-114) mmol/L Carbon Dioxide 28 (20-32) mmol/L Anion Gap 5 L (7-15) mEq/L BUN 5 (5-24) mg/dL Creatinine 0.9 (0.5-1.5) mg/dL Estimated Creat Clear 70.85 Estimated GFR 90 ml/min Glucose 115 (60-115) mg/dL Lactate 0.6 (0.5-1.9) mmol/L Calcium 9.0 (8.4-10.6) mg/dL Magnesium 1.9 (1.5-2.6) mg/dL Total Bilirubin 0.3 (0.1-1.5) mg/dL AST 19 (12-35) U/L ALT 12 (4-35) U/L Alkaline Phosphatase 56 (40-150) U/L C-Reactive Protein 1.0 (0.5-1.0) mg/dL Total Protein 6.5 (6.0-8.3) g/dL Albumin 3.7 (3.3-5.0) g/dL Lipase 75 (23-300) U/L Urine Color Yellow (Yellow) Urine Appearance Slightly Cloudy A (Clear) Urine pH 8.5 (5.0-8.5) Ur Specific [place] 1.020 (1.000-1.030) Urine Protein 1+ A (Negative) Urine Glucose (UA) Negative (Negative) Urine Ketones Negative (Negative) Urine Blood Negative (Negative) Urine Nitrite Negative (Negative) Urine Bilirubin Negative (Negative) Urine Urobilinogen 1.0 (0.2-1.0) Ur Leukocyte Esterase Negative (Negative) Urine RBC 2-5 A (0-2) Urine WBC 5-10 A (0-5) Ur Squamous Epith Cells Few (None-Few) Urine Bacteria Few A (None) Urine Opiates Screen Negative (Negative) Ur Oxycodone Screen Negative (Negative) Urine Methadone Screen Negative (Negative) Ur Barbiturates Screen Negative (Negative) U Tricyclic Antidepress Negative (Negative) Ur Phencyclidine Scrn Negative (Negative) Ur Amphetamines Screen Negative (Negative) U Methamphetamines Scrn Negative (Negative) U Benzodiazepines Scrn POSITIVE A (Negative) Urine Cocaine Screen Negative (Negative) U Marijuana (THC) Screen Negative (Negative) Ur Drug Screen Comment See Note Lab Acknowledgement Test Added Imaging Data CT scan - abdomen: Attestation: I have reviewed the pertinent imaging results. Radiologist's impression: Lung bases: Normal. Liver: Periportal edema. Two tiny punctate hypoenhancing liver lesions are probably small cysts. Gallbladder and bile ducts: Cholecystectomy. No bile duct dilation. Pancreas: Normal. Spleen: Normal. Adrenal glands: Normal. Kidneys: Normal parenchyma. Small right renal cyst. No calculi. No urinary tract dilation. Urinary bladder: Normal. Pelvis: Right ovarian cyst is unchanged. Diffusely heterogeneous uterus is similar compared to the previous exam. Vessels: Normal. Bowel: No dilated or inflamed bowel. Normal appendix. Mild stool burden. Lymph nodes: No adenopathy. Peritoneum: No ascites. Abdominal wall: No hernia. Bones: No fractures. No focal worrisome bone lesions. IMPRESSION: 1. Periportal edema is a nonspecific finding but may reflect mild volume overload. 2. Right ovarian cyst unchanged. 3. Heterogeneous uterus. Correlate with symptoms. Discharge Plan Discharge Clinical Impression: Nausea & vomiting, Abdominal pain Patient Disposition: Home, Self-Care Condition: Improved Additional Instructions: You received a medication called Protonix through the IV that should help decrease inflammation in your stomach. I would like you to continue the medicine like it called omeprazole which can be found at the pharmacy. Take 1 tablet every evening for 2 weeks. Continue your the antibiotic for your UTI. Because you received Rocephin, an antibiotic early this morning you may restart your antibiotics this afternoon. At this time the culture of the urine has not been returned. Push fluids including liquids not water such as Powerade or Gatorade and apple juice. Tylenol or ibuprofen may be used for discomfort. If you are not improved in the next 24 hours, consider appointment with our surgeon for upper endoscopy consideration and further evaluation. The phone number is [phone]. Your hemoglobin dropped between April 26 and yesterday. Please monitor your stool for any blood. Follow-up with your primary doctor this week for recheck of your hemoglobin. Today's hemoglobin was 10.6. Return to the emergency room for worsening symptoms, especially blood your stool, high fever, worsening vomiting or pain. Prescriptions: No Action fluticasone propionate [Flonase Allergy Relief] 50 mcg/actuation spray,suspension 1 spray intranasal QDAY Qty: 16 6RF Rx Instructions: administer into each nostril trazodone 50 mg tablet 50 mg PO QHS PRN (Reason: insomnia) Qty: 90 3RF mupirocin 2 % ointment 1 applic topical TID Qty: 15 0RF ibuprofen 600 mg tablet 600 mg PO Q6-8H PRNQty: 20 0RF metoclopramide HCl [Reglan] 10 mg tablet 10 mg PO Q6H PRN (Reason: nausea and vomiting) Qty: 10 0RF Child Chewable Vitamn Complete 18 mg iron tablet,chewable 1 tab PO DAILY Qty: 90 3RF cholecalciferol (vitamin D3) 50 mcg (2,000 unit) capsule 50 mcg PO QDAY Qty: 90 3RF Rx Instructions: to start after she finishes 50,000 units weekly dextroamphetamine-amphetamine [Adderall XR] 30 mg capsule,extended release 24hr 30 mg PO QAM Qty: 30 0RF Follow Up/Referrals: Milagros Sal APRN, PAIRING MACHINE OPERATOR [Primary Care Provider] - Stand Alone Forms: MyHealth Info Instructions
[2024-04-28 03:14] LABS: Lactate* 0.6 mmol/L (0.5-1.9)
[2024-04-28 03:16] LABS: Basophils Absolute Auto 0.04 K/uL (0.00-0.30); Basophils Percent Auto 0.6 % (0.0-3.0); Eosinophils Absolute Auto 0.05 K/uL (0.00-0.50); Eosinophils Percent Auto 0.8 % (0.0-7.0); Hematocrit 31.5 % (33.0-51.0); Hemoglobin* 10.6 gm/dL (12.0-16.0); Immature Granulocytes Abs Auto 0.01 K/uL (0.00-0.30); Immature Granulocytes Pct Auto 0.2 %; Lymphocytes Percent Auto 16.8 % (20-44); Mean Corpuscular HGB Conc 34 gm/dL (32-36); Mean Corpuscular Hemoglobin 29 pg (26-34); Mean Corpuscular Volume 85 fL (80-100); Monocytes Percent Auto 6.2 % (0.0-11.0); Neutrophils Percent Auto 75.4 % (42.0-72.0); Platelet Count* 298 K/uL (140-440); RDW Coefficient of Variation % 12.5 % (11.5-15.5); Red Blood Count 3.71 m/uL (4.00-5.20); White Blood Count* 6.49 K/uL (4.50-11.00)
[2024-04-28 03:18] LABS: Slide Review Reflex No
[2024-04-28] MEDS: 0.9 % SODIUM CHLORIDE 1000 ml 1,000 ML IV (03:20)
[2024-04-28] MEDS: ONDANSETRON 2 MG/ML inj 4 MG IVP ×2 (03:20→07:50)
[2024-04-28 03:29] LABS: Albumin* 3.7 g/dL (3.3-5.0); Chloride* 104 mmol/L (96-114); Sodium* 137 mmol/L (135-149)
[2024-04-28 03:30] LABS: Potassium* 3.5 mmol/L (3.6-5.1)
[2024-04-28 03:31] LABS: Creatinine* 0.9 mg/dL (0.5-1.5); Est. Creatinine Clearance* 70.85; Estimated Glomerular Filt Rate 90 ml/min
[2024-04-28 03:32] LABS: Alkaline Phosphatase* 56 U/L (40-150); Anion Gap 5 mEq/L (7-15); Aspartate Amino Transferase* 19 U/L (12-35); Bilirubin Total* 0.3 mg/dL (0.1-1.5); Blood Urea Nitrogen* 5 mg/dL (5-24); Carbon Dioxide* 28 mmol/L (20-32); Lipase* 75 U/L (23-300); Total Protein* 6.5 g/dL (6.0-8.3)
[2024-04-28 03:33] LABS: Alanine Aminotransferase* 12 U/L (4-35); Glucose* 115 mg/dL (60-115); Magnesium* 1.9 mg/dL (1.5-2.6)
[2024-04-28] MEDS: KETOROLAC 15 MG/ML inj IVP (03:51)
[2024-04-28] MEDS: SODIUM CHLORIDE 0.9% IVPB (03:51)
[2024-04-28] MEDS: PANTOPRAZOLE SODIUM IVPB (03:51)
[2024-04-28 03:59] LABS: Appearance Urine Slightly Cloudy (Clear); Bilirubin Urine Negative (Negative); Blood Urine Negative (Negative); Color Urine Yellow (Yellow); Glucose Urine Negative (Negative); Ketones Urine Negative (Negative); Leukocyte Esterase Urine Negative (Negative); Nitrite Urine Negative (Negative); Protein Urine 1+ (Negative); pH Urine 8.5 (5.0-8.5)
[2024-04-28] MEDS: cefTRIAXone 1 GM in 0.9 % SODIUM CHLORIDE Mini-bag 100 ML IVPB (04:00)
[2024-04-28 04:08] LABS: Bacteria Urine Few; Squamous Epithelial Cell Urine Few (None-Few)
--- NOTE | 2024-04-28 04:28 | CRLHL7_ITS ---
For Patients: As a result of the Century Cures Act, medical imaging exams and procedure reports are released immediately into your electronic medical record. You may view this report before your referring provider. If you have questions, please contact your health care provider. INDICATION: Upper abdominal pain and falling hemoglobin. COMPARISON: 04/26/2024 TECHNIQUE: CT of the abdomen and pelvis with intravenous contrast. Multiplanar axial, coronal, and sagittal reformats were reconstructed. Contrast: 76 mL Isovue 370. FINDINGS: Lung bases: Normal. Liver: Periportal edema. Two tiny punctate hypoenhancing liver lesions are probably small cysts. Gallbladder and bile ducts: Cholecystectomy. No bile duct dilation. Pancreas: Normal. Spleen: Normal. Adrenal glands: Normal. Kidneys: Normal parenchyma. Small right renal cyst. No calculi. No urinary tract dilation. Urinary bladder: Normal. Pelvis: Right ovarian cyst is unchanged. Diffusely heterogeneous uterus is similar compared to the previous exam. Vessels: Normal. Bowel: No dilated or inflamed bowel. Normal appendix. Mild stool burden. Lymph nodes: No adenopathy. Peritoneum: No ascites. Abdominal wall: No hernia. Bones: No fractures. No focal worrisome bone lesions. IMPRESSION: 1. Periportal edema is a nonspecific finding but may reflect mild volume overload. 2. Right ovarian cyst unchanged. 3. Heterogeneous uterus. Correlate with symptoms. Please note that all CT scans at this facility use dose modulation, iterative reconstruction, and/or weight-based dosing when appropriate to reduce radiation dose to as low as reasonably achievable. Dictated by Marcelle aCrson MD @ 04/28/2024 5:27:01 AM (Electronically Signed)
[2024-04-28] MEDS: PROMETHAZINE 25 MG/ML INJ 12.5 MG IVP (05:09)
[2024-04-28 06:38] LABS: Amphetamine Screen Urine Negative (Negative); Barbiturate Screen Urine Negative (Negative); Benzodiazepines Screen Urine POSITIVE (Negative); Cannabinoid Screen Urine Negative (Negative); Cocaine Screen Urine Negative (Negative); Methadone Screen Urine Negative (Negative); Methamphetamines Screen Urine Negative (Negative); Opiate Screen Urine Negative (Negative); Oxycodone Screen Urine Negative (Negative); Phencyclidine Screen Urine Negative (Negative); Tricyclic Antidepressant Urine Negative (Negative)
== END 2024-04-28 08:05 | disposition home or self-care (01) ==
PROVIDERS: Emergency Provider Family Medicine; PCP Nurse Practitioner Family
DX: R11.2 Nausea with vomiting, unspecified (principal); R10.9 Unspecified abdominal pain
CPT/HCPCS: 36415; 74177; 80053; 80306; 81001; 83605; 83690; 83735; 85025; 86140; 87086; 96365; 96366; 96375; 99284; J0696; J1885; J2405; J2470; J2550; J7030; Q9967

== ENCOUNTER 2024-05-19 14:27 | Outpatient (CLI) | payer OTHER, SELFPAY | END 2024-05-19 14:28 | disposition home or self-care (01) | LOC: KYNREF 14:27 | PROVIDERS: PCP Nurse Practitioner Family; Visit Provider Nurse Practitioner Family | DX: D50.9 Iron deficiency anemia, unspecified (principal); E55.9 Vitamin D deficiency, unspecified | CPT/HCPCS: 85025 ==

== ENCOUNTER 2024-07-14 13:35 | Outpatient (CLI) | payer OTHER, SELFPAY ==
--- NOTE | 2024-07-14 14:00 | CRLHL7_ITS ---
For Patients: As a result of the Century Cures Act, medical imaging exams and procedure reports are released immediately into your electronic medical record. You may view this report before your referring provider. If you have questions, please contact your health care provider. INDICATION: Follow-up right ovarian cyst COMPARISON: CT 04/28/2024 TECHNIQUE: 2D bain scale and color Doppler images were acquired of the pelvis using a transabdominal and transvaginal approach. FINDINGS: Sonographic images demonstrate a normal size and smooth outer contour of the uterus. Uterus measures 7.7 cm in length by 4.5 cm in AP diameter by 6.0 cm in transverse dimension. The myometrium has a normal uniform echotexture. The endometrial lining measures 2.7 mm in composite thickness. The right ovary measures 3.9 x 1.1 x 1.9 cm in size and the left ovary measures 4.1 x 1.3 x 2.6 cm. The ovaries demonstrate normal arterial and venous blood flow on color Doppler analysis. There are no suspicious fluid collections within the cul-de-sac. IMPRESSION: Interval resolution of the previously noted right ovarian cyst. Dictated by Wil Hodges MD @ 07/15/2024 1:33:41 PM (Electronically Signed)
== END 2024-07-14 13:36 | disposition home or self-care (01) ==
LOC: US 13:35
PROVIDERS: PCP Nurse Practitioner Family; Visit Provider Obstetrics & Gynecology
DX: N83.201 Unspecified ovarian cyst, right side (principal)
CPT/HCPCS: 76830; 76856

== ENCOUNTER 2024-07-24 10:02 | Outpatient (CLI) | payer SELFPAY ==
[2024-07-27 01:49] LABS: HPV Source Cervix; HPV, High Risk by TMA Not Detected
== END 2024-07-24 10:03 | disposition home or self-care (01) ==
PROVIDERS: PCP Nurse Practitioner Family; Visit Provider Obstetrics & Gynecology
DX: E55.9 Vitamin D deficiency, unspecified (principal); D50.9 Iron deficiency anemia, unspecified; R79.89 Other specified abnormal findings of blood chemistry; E66.9 Obesity, unspecified; Z12.4 Encounter for screening for malignant neoplasm of cervix; Z13.29 Encounter for screening for other suspected endocrine disorder
CPT/HCPCS: 84443; 87624; 87625; 88141; 88142

== ENCOUNTER 2024-08-07 22:43 | Emergency (ER) | payer OTHER, SELFPAY ==
[2024-08-07 22:48] VITALS: BP 141/80; PULSE 103; RESP 16; TEMP 36.7; O2SAT 100; BMI 30.3
--- NOTE | 2024-08-07 23:00 | ED_ITS ---
HPI - Head Injury General Date Seen: 08/07/24 Chief complaint: Head Injury/Pain Stated complaint: head injury Time Seen by Provider: 08/07/24 22:52 Source: patient Mode of arrival: ambulatory Limitations: no limitations History of Present Illness HPI Narrative: Patient is a 29-year-old female presenting to the emergency department hitting her head at work. She states at about 20:00 she bent down at work and hit her head on the table. Initially shows not have any pain but is not having some slight pain to her right forehead. She came in to make sure nothing was wrong. Denies vision changes, weakness, numbness, headache, lightheadedness, dizziness. No other injuries noted. No other concerns states Related Data Home Medications ?Medication ?Instructions ?Recorded ?Confirmed etonogestrel 68 mg subdermal 1 implant subdermal ONCE 07/24/24 07/24/24 implant (Nexplanon) Previous Rx's ?Medication ?Instructions ?Recorded trazodone 50 mg tablet 50 mg PO QHS PRN insomnia #90 tabs 10/11/23 fluticasone propionate 50 1 spray intranasal QDAY #16 grams 11/27/23 mcg/actuation nasal spray,suspension (Flonase Allergy Relief) ibuprofen 600 mg tablet 600 mg PO Q6-8H PRN #20 tabs 01/13/24 epinephrine 0.3 mg/0.3 mL 0.3 ml IM Q5-15M PRN allergic 05/19/24 injection, auto-injector reaction #2 ea dextroamphetamine-amphetamine 10 10 mg PO QDAY #30 tabs 07/11/24 mg tablet dextroamphetamine-amphetamine 30 30 mg PO QDAY 30 days #30 tabs 07/17/24 mg tablet (Adderall) bupropion HCl 150 mg 24 hr tablet, 150 mg PO QAM #30 tabs 08/01/24 extended release (Wellbutrin XL) Allergies Allergy/AdvReac Type Severity Reaction Status Date / Time amoxicillin Allergy Mild Unknown Verified 07/24/24 09:53 ciprofloxacin Allergy Unknown Verified 07/24/24 09:53 Penicillins Allergy Unknown Rash Verified 07/24/24 09:53 bee venom protein (honey bee) Allergy Verified 07/24/24 09:53 Review of Systems Narrative: Pertinent systems reviewed and were negative unless stated in HPI PFSH PFSH Medical History Iron deficiency anemia (2015) ?D50.9 - Iron deficiency anemia, unspecified (ICD-10) Insomnia ?G47.00 - Insomnia, unspecified (ICD-10) Marijuana use ?F12.90 - Cannabis use, unspecified, uncomplicated (ICD-10) ADHD ?F90.9 - Attention-deficit hyperactivity disorder, unspecified type (ICD-10) History of alcohol abuse ?F10.11 - Alcohol abuse, in remission (ICD-10) Labor abnormality ?O62.9 - Abnormality of forces of labor, unspecified (ICD-10) Low vitamin D level ?R79.89 - Other specified abnormal findings of blood chemistry (ICD-10) Post-traumatic stress ?F43.10 - Post-traumatic stress disorder, unspecified (ICD-10) Passive suicidal ideations ?R45.851 - Suicidal ideations (ICD-10) Persistent headaches ?R51.9 - Headache, unspecified (ICD-10) Nausea ?R11.0 - Nausea (ICD-10) Headache ?R51.9 - Headache, unspecified (ICD-10) Nexplanon insertion ?Z30.017 - Encounter for initial prescription of implantable subdermal contraceptive (ICD-10) Nexplanon in place ?Z97.5 - Presence of (intrauterine) contraceptive device (ICD-10) Viral infection ?B34.9 - Viral infection, unspecified (ICD-10) Obstructive sleep apnea syndrome ?G47.33 - Obstructive sleep apnea (adult) (pediatric) (ICD-10) Obesity with body mass index (BMI) of 30.0 to 39.9 ?E66.9 - Obesity, unspecified (ICD-10) Excessive daytime sleepiness ?G47.19 - Other hypersomnia (ICD-10) Elevated liver function tests ?R79.89 - Other specified abnormal findings of blood chemistry (ICD-10) Anxiety with depression ?F41.8 - Other specified anxiety disorders (ICD-10) Acute cholecystitis ?K81.0 - Acute cholecystitis (ICD-10) Surgical History Status post primary low transverse section (2020) ?Z98.891 - History of uterine scar from previous surgery (ICD-10) Status post laparoscopic cholecystectomy ?Z90.49 - Acquired absence of other specified parts of digestive tract (ICD- 10) History of ovarian cystectomy (2018) ?Z98.890 - Other specified postprocedural states (ICD-10) ?Z87.42 - Personal history of other diseases of the female genital tract (ICD-10) Family History Maternal Grandfather Diabetes Mother Epilepsy Pulmonary embolism Social History 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 , 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[place], 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 Social drinker, 3/week Smoking Status: Never smoker Do you use any of these nicotine containing products: None Second hand tobacco smoke exposure: No How often do you have a drink containing alcohol: never How often do you have six or more drinks on one occasion: Never AUDIT-C Alcohol total score: 0 Non-prescribed substance use: denies use Little interest or pleasure in doing things: several days Feeling down, depressed, or hopeless: not at all service: No Exam Narrative: Exam Narrative: Const: Well-nourished, Well-developed, in mild distress Eyes: PERRL, no conjunctival injection, and symmetrical lids HENT: Atraumatic external nose and ears. Moist mucous membranes. Mild bruising to right forehead. No palpable skull fractures. Neck: Symmetric, trachea midline, No thyromegaly. Remove MSK:Extremities w/o deformity, Normal Active ROM Skin: Warm, Dry. No rashes or lesions. Neuro: Normal Muscle tone, No focal neurological deficits. Psych: Awake, Alert, & Oriented x3. Appropriate mood and affect. Const: Vital Signs, click to edit/add: Vital Signs - 24 hr 08/07/24 22:48 Temperature 98.0 F Pulse Rate [Pulse Oximeter] 103 H Respiratory Rate 16 Blood Pressure [Ri ght Upper Arm] 141/80 H Pulse Oximetry 100 Oxygen Delivery Me thod Room Air Course Vital Signs Vital signs: Initial Vital Signs Temperature 98.0 F 08/07/24 22:48 Temperature Source Temporal Artery Scan 08/07/24 22:48 Pulse Rate 103 H 08/07/24 22:48 Respiratory Rate 16 08/07/24 22:48 Blood Pressure 141/80 H 08/07/24 22:48 Blood Pressure Mean 100 08/07/24 22:48 Blood Pressure Position Sitting 08/07/24 22:48 Pulse Oximetry 100 08/07/24 22:48 Oxygen Delivery Method Room Air 08/07/24 22:48 Vital Signs Temperature 98.0 F 08/07/24 22:48 Pulse Rate 103 H 08/07/24 22:48 Respiratory Rate 16 08/07/24 22:48 Blood Pressure 141/80 H 08/07/24 22:48 Pulse Oximetry 100 08/07/24 22:48 Oxygen Delivery Method Room Air 08/07/24 22:48 Temperature 98.0 F 08/07/24 22:48 Pulse Rate 103 H 08/07/24 22:48 Respiratory Rate 16 08/07/24 22:48 Blood Pressure 141/80 H 08/07/24 22:48 Pulse Oximetry 100 08/07/24 22:48 Oxygen Delivery Method Room Air 08/07/24 22:48 MDM - Head Injury MDM Narrative Medical decision making narrative: Patient is a 29-year-old female presenting after head injury. She bent down hit her forehead on the table. This is a relatively low mechanism of injury and extremely unlikely to cause any internal damage. She does have some mild bruising to as to be expected but considering the location of the injury and mechanism of action I do not believe head imaging is necessary and would just be unnecessary radiation for patient of her age. Again she hit her head by bending over. She did not fall or get pushed. She will be discharged at this time. Discharge Plan Discharge Clinical Impression: Closed head injury Patient Disposition: Home, Self-Care Condition: Stable Instructions: Head Injury (ED) Additional Instructions: Take Tylenol for headache. Return to emergency department for new or worsening symptoms. Prescriptions: No Action fluticasone propionate [Flonase Allergy Relief] 50 mcg/actuation spray,suspension 1 spray intranasal QDAY Qty: 16 6RF Rx Instructions: administer into each nostril epinephrine 0.3 mg/0.3 mL auto-injector 0.3 ml IM Q5-15M PRN (Reason: allergic reaction) Qty: 2 0RF Rx Instructions: do not exceed 3 doses per episode Nexplanon 68 mg implant 1 implant subdermal ONCE Rx Instructions: as a single dose trazodone 50 mg tablet 50 mg PO QHS PRN (Reason: insomnia) Qty: 90 3RF ibuprofen 600 mg tablet 600 mg PO Q6-8H PRNQty: 20 0RF dextroamphetamine-amphetamine 10 mg tablet 10 mg PO QDAY Qty: 30 0RF Rx Instructions: Take 10 mg about 6 hours after the 30 mg extended release dose. dextroamphetamine-amphetamine [Adderall] 30 mg tablet 30 mg PO QDAY 30 Days Qty: 30 0RF bupropion HCl [Wellbutrin XL] 150 mg tablet extended release 24 hr 150 mg PO QAM Qty: 30 0RF Follow Up/Referrals: Milagros Sal, [employer] [Primary Care Provider] - Stand Alone Forms: [facility] Info Instructions
[2024-08-07 23:13] VITALS: BP 135/75; PULSE 89; RESP 16; TEMP 36.7; O2SAT 100
== END 2024-08-07 23:13 | disposition home or self-care (01) ==
LOC: ED 23:08
PROVIDERS: Emergency Provider Student in an Organized Health Care Education/Training Program; PCP Nurse Practitioner Family; Visit Provider Student in an Organized Health Care Education/Training Program
DX: S09.90XA Unspecified injury of head, initial encounter (principal); Y99.0 Civilian activity done for income or pay
CPT/HCPCS: 99282

== ENCOUNTER 2024-10-08 22:16 | Emergency (ER) | payer OTHER, SELFPAY ==
[2024-10-08 22:29] VITALS: BP 124/75; PULSE 122; RESP 18; TEMP 36.4; O2SAT 100; BMI 32.2
--- NOTE | 2024-10-08 22:35 | ED_ITS ---
HPI - General Adult General Chief complaint: Weakness Stated complaint: 9 day period, anemic, dizzy Time Seen by Provider: 10/08/24 22:35 History of Present Illness HPI narrative: Patient reports 9-day menses. Recently switched from Nexplanon to Depo r/t ovarian cysts. Denies clots, heavy bleeding. Hx of anemia ( Hg 10 in April). Patient with increased dizziness over past 3 days. 29-year-old woman presenting to the emergency department with concern of heavy vaginal bleeding. She reports that this is her 1st menses since starting Depo. Was on Nexplanon for ovarian cysts for a while and switched to Depo injection in August. Using regular pads. Was definitely heavier bleeding initially and now has lightened somewhat. She has become more symptomatic though and just wants the bleeding to stop. She feels a little lightheaded and can need to take care with transiti ons. She is not short of breath. Notes a history of anemia. Records indicate iron deficiency. No fever. No significant abdominal pain. Related Data Home Medications ?Medication ?Instructions ?Recorded ?Confirmed medroxyprogesterone 150 mg/mL 150 mg IM [id number] 10/08/24 10/08/24 intramuscular suspension (Depo-Provera) Previous Rx's ?Medication ?Instructions ?Recorded trazodone 50 mg tablet 50 mg PO QHS PRN insomnia #90 tabs 10/11/23 fluticasone propionate 50 1 spray intranasal QDAY #16 grams 11/27/23 mcg/actuation nasal spray,suspension (Flonase Allergy Relief) ibuprofen 600 mg tablet 600 mg PO Q6-8H PRN #20 tabs 01/13/24 epinephrine 0.3 mg/0.3 mL 0.3 ml IM Q5-15M PRN allergic 05/19/24 injection, auto-injector reaction #2 ea bupropion HCl 150 mg 24 hr tablet, 150 mg PO QAM #90 tabs 09/16/24 extended release (Wellbutrin XL) dextroamphetamine-amphetamine 10 10 mg PO QDAY #30 tabs 09/16/24 mg tablet dextroamphetamine-amphetamine ER 30 mg PO QAM #30 caps 09/16/24 30 mg 24hr capsule,extend release (Adderall XR) Allergies Allergy/AdvReac Type Severity Reaction Status Date / Time amoxicillin Allergy Mild Unknown Verified 10/08/24 22:29 ciprofloxacin Allergy Unknown Verified 10/08/24 22:29 Penicillins Allergy Unknown Rash Verified 10/08/24 22:29 bee venom protein (honey bee) Allergy Verified 10/08/24 22:29 Review of Systems Status of ROS: Reports: 6 or more systems reviewed and unremarkable except as noted in History and below [facility] Medical History Iron deficiency anemia (2016) ?D50.9 - Iron deficiency anemia, unspecified (ICD-10) Insomnia ?G47.00 - Insomnia, unspecified (ICD-10) Marijuana use ?F12.90 - Cannabis use, unspecified, uncomplicated (ICD-10) ADHD ?F90.9 - Attention-deficit hyperactivity disorder, unspecified type (ICD-10) History of alcohol abuse ?F10.11 - Alcohol abuse, in remission (ICD-10) Labor abnormality ?O62.9 - Abnormality of forces of labor, unspecified (ICD-10) Low vitamin D level ?R79.89 - Other specified abnormal findings of blood chemistry (ICD-10) Post-traumatic stress ?F43.10 - Post-traumatic stress disorder, unspecified (ICD-10) Passive suicidal ideations ?R45.851 - Suicidal ideations (ICD-10) Persistent headaches ?R51.9 - Headache, unspecified (ICD-10) Nausea ?R11.0 - Nausea (ICD-10) Headache ?R51.9 - Headache, unspecified (ICD-10) Nexplanon insertion ?Z30.017 - Encounter for initial prescription of implantable subdermal contraceptive (ICD-10) Nexplanon in place ?Z97.5 - Presence of (intrauterine) contraceptive device (ICD-10) Viral infection ?B34.9 - Viral infection, unspecified (ICD-10) Obstructive sleep apnea syndrome ?G47.33 - Obstructive sleep apnea (adult) (pediatric) (ICD-10) Obesity with body mass index (BMI) of 30.0 to 39.9 ?E66.9 - Obesity, unspecified (ICD-10) Excessive daytime sleepiness ?G47.19 - Other hypersomnia (ICD-10) Elevated liver function tests ?R79.89 - Other specified abnormal findings of blood chemistry (ICD-10) Anxiety with depression ?F41.8 - Other specified anxiety disorders (ICD-10) Acute cholecystitis ?K81.0 - Acute cholecystitis (ICD-10) Surgical History Status post primary low transverse section (2020) ?Z98.891 - History of uterine scar from previous surgery (ICD-10) Status post laparoscopic cholecystectomy ?Z90.49 - Acquired absence of other specified parts of digestive tract (ICD- 10) History of ovarian cystectomy (2017) ?Z98.890 - Other specified postprocedural states (ICD-10) ?Z87.42 - Personal history of other diseases of the female genital tract (ICD-10) Family History Maternal Grandfather Diabetes Mother Epilepsy Pulmonary embolism Social History 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 Bespectacled. NAD. She is texting when I enter the room. Breathing easily. Mucous membranes do not look particularly pale. Mouth is moist. Lungs are clear. Heart is tachycardic in a regular rhythm. Abdomen is soft without masses. She is a little tender to palpation in the suprapubic area. Well- perfused peripherally. No peripheral edema. exam was not done Const: Vital Signs, click to edit/add: Vital Signs - 24 hr 10/08/24 22:29 10/08/24 23:07 Temperature 97.6 F Pulse Rate [Pulse Oximeter] 122 H 110 H Respiratory Rate 18 16 Blood Pressure [Ri ght Upper Arm] 124/75 110/77 Pulse Oximetry 100 100 Oxygen Delivery Me thod Room Air Room Air Documenting provider has reviewed patient's vital signs: yes Course Vital Signs Vital signs: Initial Vital Signs Temperature 97.6 F 10/08/24 22:29 Temperature Source Temporal Artery Scan 10/08/24 22:29 Pulse Rate 122 H 10/08/24 22:29 Respiratory Rate 18 10/08/24 22:29 Blood Pressure 124/75 10/08/24 22:29 Blood Pressure Mean 91 10/08/24 22:29 Blood Pressure Position Sitting 10/08/24 22:29 Pulse Oximetry 100 10/08/24 22:29 Oxygen Delivery Method Room Air 10/08/24 22:29 Vital Signs Temperature 97.6 F 10/08/24 22:29 Pulse Rate 122 H 10/08/24 22:29 Respiratory Rate 18 10/08/24 22:29 Blood Pressure 124/75 10/08/24 22:29 Pulse Oximetry 100 10/08/24 22:29 Oxygen Delivery Method Room Air 10/08/24 22:29 Temperature 97.6 F 10/08/24 22:29 Pulse Rate 110 H 10/08/24 23:07 Respiratory Rate 16 10/08/24 23:07 Blood Pressure 110/77 10/08/24 23:07 Pulse Oximetry 100 10/08/24 23:07 Oxygen Delivery Method Room Air 10/08/24 23:07 Medications Administered Medications: Discontinued Medications Generic Name Dose Route Start Last Admin Trade Name Freq PRN Reason Stop Dose Admin Sodium Chloride 500 mls @ 1,000 mls/hr 10/08/24 22:42 10/08/24 23:15 0.9 % Sodium Chloride 500 Ml IV 10/08/24 23:11 Infused .Q30M ONE Infusion Medical Decision Making MDM Narrative Medical decision making narrative: While doubtful, would still screen for . If this is positive would need ultrasound for retained product probably. Otherwise type and screen and check hemoglobin. Since symptomatic initiating IV fluid resuscitation. Hemoglobin returns at 10.6 which is similar to prior. Discussed with colleague. Already receiving Depo. Further progesterone unlikely to make a significant difference and hemoglobin appears to be stable. Estrogen likely to make n auseated. Might benefit from oral contraceptives. With stability, now overall improved, with which presented here still need to verify negative anticipating discharge to outpatient follow-up. Negative test. Pulse has improved. See patient discharge plan for further discussion Stay well-hydrated. Please call for follow-up in your clinic/Women's Health. Does not necessarily have to be with your primary care provider. Your hemoglobin looks to be similar to prior. Your test was negative. Be seen sooner for marked increase in bleeding or you are bleeding through 2 thick/overnight pads an hour for 2 consecutive hours, increasing shortness of breath, worsening lightheadedness. Medical Records Medical records reviewed: Yes I reviewed the patient's medical records Lab Data Lab results reviewed: Yes I reviewed the patient's lab results Labs: Lab Results 10/08/24 10/09/24 Range/Units 23:00 00:00 Hgb 10.6 L (12.0-16.0) gm/dL Urine HCG, Qual Negative (Negative) Discharge Plan Discharge Clinical Impression: Heavy menstrual bleeding, Anemia Patient Disposition: Home w/ Parent or Adult Condition: Improved Additional Instructions: Stay well-hydrated. Please call for follow-up in your clinic/Women's Health. Does not necessarily have to be with your primary care provider. Your hemoglobin looks to be similar to prior. Your test was negative. Be seen sooner for marked increase in bleeding or you are bleeding through 2 thick/overnight pads an hour for 2 consecutive hours, increasing shortness of breath, worsening lightheadedness. Prescriptions: No Action fluticasone propionate [Flonase Allergy Relief] 50 mcg/actuation spray,suspension 1 spray intranasal QDAY Qty: 16 6RF Rx Instructions: administer into each nostril epinephrine 0.3 mg/0.3 mL auto-injector 0.3 ml IM Q5-15M PRN (Reason: allergic reaction) Qty: 2 0RF Rx Instructions: do not exceed 3 doses per episode bupropion HCl [Wellbutrin XL] 150 mg tablet extended release 24 hr 150 mg PO QAM Qty: 90 3RF dextroamphetamine-amphetamine 10 mg tablet 10 mg PO QDAY Qty: 30 0RF Rx Instructions: Take 10 mg about 6 hours after the 30 mg extended release dose. dextroamphetamine-amphetamine [Adderall XR] 30 mg capsule,extended release 24hr 30 mg PO QAM Qty: 30 0RF Rx Instructions: 30 mg extended release dose daily trazodone 50 mg tablet 50 mg PO QHS PRN (Reason: insomnia) Qty: 90 3RF ibuprofen 600 mg tablet 600 mg PO Q6-8H PRNQty: 20 0RF medroxyprogesterone [Depo-Provera] 150 mg/mL suspension 150 mg IM [id number] Follow Up/Referrals: Milagros Sal APRN, [employer] [Primary Care Provider] - Stand Alone Forms: [employer] Program Info Instructions
[2024-10-08] MEDS: 0.9 % SODIUM CHLORIDE 500 ML 500 ML 1000 ML IV (22:38)
[2024-10-08 23:07] VITALS: BP 110/77; PULSE 110; RESP 16; O2SAT 100
[2024-10-08 23:11] LABS: Hemoglobin* 10.6 gm/dL (12.0-16.0)
[2024-10-09 00:34] LABS: Ur HCG Qualitative* Negative (Negative)
== END 2024-10-09 00:55 | disposition home or self-care (01) ==
PROVIDERS: Emergency Provider Family Medicine; PCP Nurse Practitioner Family
DX: N92.0 Excessive and frequent menstruation with regular cycle (principal); D64.9 Anemia, unspecified
CPT/HCPCS: 36415; 81025; 85018; 86850; 86900; 86901; 99284; J7030